=== PATIENT | male | born 1940 | race Caucasian/White ===

== ENCOUNTER 2018-05-28 10:00 | Inpatient (IN) | payer MEDICARE ==
[2018-05-28 10:57] LABS: Hemoglobin 12.6 g/dL (14.0-18.0)
[2018-05-28 11:18] LABS: Anion Gap 13 mmol/L (10-20); BUN (Urea Nitrogen) 19 mg/dL (8.4-25.7); Calc. Creatinine Clearance 0 mL/min (70-130); Calcium 8.6 mg/dL (7.8-10.44); Carbon Dioxide 26 mmol/L (23-31); Chloride 93 mmol/L (98-107); Estimated GFR-MDRD 53; Glucose 112 mg/dL (83-110); Potassium 3.9 mmol/L (3.5-5.1); Sodium 128 mmol/L (136-145)
--- NOTE | 2018-05-28 11:48 | RAD ---
CHEST 2 VIEWS: Date: 05/28/18 HISTORY: Preoperative exam. COMPARISON: None. FINDINGS: There is diffuse interstitial and alveolar opacification of the left hemithorax, worrisome for chroni c change versus infiltrate. Comparison with prior imaging would be beneficial. Normal cardiac silhoue tte. There is no significant pleural fluid or pneumothorax. Rightward curvature of the thoracic spine is noted. IMPRESSION: Diffuse opacification of the left hemithorax due to interstitial and alveolar opacities. Correlate fo r infiltrate versus chronic change. POS: [facility]
[2018-05-28 11:56] LABS: Mean Corpuscular HGB CONC 33.5 g/dL (32.0-36.0); Mean Corpuscular Hemoglobin 31.6 pg (27.0-31.0); Mean Corpuscular Volume 94.4 fL (78.0-98.0); Mean Platelet Volume 8.7 fL (7.4-10.4); Platelet Count 180 thou/uL (130-400); RBC Distribution Width 12.8 % (11.5-14.5); Red Blood Cell (RBC) Count 3.99 mill/uL (4.70-6.10); White Blood Cell (WBC) Count 12.3 thou/uL (4.8-10.8)
[2018-05-28] MEDS ORDERED: HYDROcodone/Acetaminophen 5/325 mg Tablet PO PRN (11:56)
[2018-05-28] MEDS ORDERED: Ondansetron ODT 4 MG TAB PO PRN (11:56)
[2018-05-28] MEDS ORDERED: Zolpidem Tartrate 5 MG TAB PO PRN (11:56)
[2018-05-28] MEDS ORDERED: Sodium Chloride 0.9% 100 ML ONE (12:08)
[2018-05-28] MEDS ORDERED: cefTRIAXone\\ROCEPHIN 1 GM VIAL ONE (12:08)
[2018-05-28] MEDS ORDERED: Acetaminophen 325 MG TAB ONE (12:09)
[2018-05-28 12:22] LABS: Band 25 % (5-11); Lymphocytes 5 % (21-51); MDiff Complete? YES; Monocytes 2 % (0-10); Neutrophil 68 % (42-75)
--- NOTE | 2018-05-28 12:25 | HP ---
DATE OF ADMISSION: 05/28/2018 PRIMARY CARE PROVIDER: Joseph Piper M.D. HISTORY OF PRESENT ILLNESS: The patient in [place] day stay for a melanoma resection, was noted to appear ill. Sound was called. The patient states he has had fevers, sweats and chills for 2 day s, a cough nonproductive, some shortness of breath, no chest pain. He relates no smoking for the pas t 30+ years. PAST MEDICAL HISTORY: Pertinent for hypertension, elevated cholesterol. CURRENT MEDICATIONS: The patient takes atorvastatin 10 mg a day, amlodipine 5 mg a day and aspirin 8 1 mg a day. ALLERGIES: He has no medical allergies. PAST SURGICAL HISTORY: He has had actinic skin lesions removed in the past. No other surgeries. FAMILY HISTORY: His father had late onset diabetes. No coronary artery disease. SOCIAL HISTORY: He is , full code status. next of kin at bedside. No tobacco in 30 yea rs. He drinks one glass of red wine at night. REVIEW OF SYSTEMS: General: No headaches, dizziness or fainting. Eyes: No double vision, blurred vision, flashing lights. Ear, Nose and Throat: No ear pain or drainage. No nasal bleeding. No tro uble swallowing. Cardiac: No chest pain, orthopnea or paroxysmal nocturnal dyspnea. Respiratory: No history of asthma, COPD. He does have some mild shortness of breath with present illness. Gastro intestinal: No nausea, vomiting, abdominal pain, diarrhea or constipation. Genitourinary: No hemat uria or dysuria. Musculoskeletal: No pain, swelling in his arms or legs. Neurologic: No strokes, seizures or focal weakness. 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 Skin: He has some lacerations on his face from a fall, healing. He has an approximatel y 3 mm, round, minimally raised red spot on his scalp that has been diagnosed as melanoma, resection was planned today until it was canceled for this illness. Heme/Lymph: No tender or swollen lymph no kim in the axilla, inguinal or cervical area. PHYSICAL EXAMINATION: GENERAL: He is an alert, appropriate gentleman, somewhat surprised that he is considered to be sick. VITAL SIGNS: His O2 sat was noted to be 85, he was noted to have a 103 fever, pulse is approximately 110, blood pressure 110/70. HEENT: Reveal pupils equal, round and reactive to light. Extraocular movements are intact. Sclerae white. Tympanic membranes are clear. Nose is clear. Oral mucous membranes are wet. Dental hygien e is good. NECK: Supple without jugular venous distention, adenopathy or thyromegaly. CHEST: He has coarse rales across his entire anterior left and right chest. The right side is clear . HEART: Regular rate and rhythm. First and second heart sounds are clear. There are no murmurs or g allops. ABDOMEN: Soft. Bowel sounds are normal. There is no hepatosplenomegaly, no mass, no rebound, no br uits. EXTREMITIES: Reveal no cyanosis, clubbing or edema. PULSES: Carotid, radial, femoral and dorsalis pedis pulses intact. SKIN: Warm and dry with no bruises or rash. He has a 3 mm pink round area on his vertex that has be en previously identified as a melanoma. He has some healing abrasions on his forehead, nose and face . HEME/LYMPH: Reveals no tender or swollen lymph nodes in the axilla, inguinal or cervical area. NEUROLOGICAL: Cranial nerves II-XII are intact. Deep tendon reflexes are symmetric. LABORATORY AND X-RAY FINDINGS: Chest x-ray reveals significant kyphoscoliosis with an infiltrate cov ering the majority of his left chest. The diaphragm surprisingly is clear, reviewed by me. EKG, reg ular sinus rhythm with frequent PACs and nonspecific T-wave abnormality, reviewed by me. Laboratory obtained so far reveals elevated white count at 12.3, hemoglobin 12.6, platelet count of 180,000. So dium is 128, potassium 3.9, chloride 93, creatinine is 1.31, BUN is 19, glucose is 112. ADMITTING DIAGNOSES: 1. Acute respiratory failure with hypoxemia. 2. Pneumonia, left-sided, probably left upper lung. 3. Hypertension. 4. Dyslipidemia. 5. Melanoma of scalp. 6. Hyponatremia. 7. Acute kidney failure. PLAN: 1. Blood cultures. 2. IV antibiotics with Rocephin and Zithromax. 3. IV fluids. 4. Continue selected home medicines. 5. Comprehensive metabolic profile today. Basic metabolic profile tomorrow.
[2018-05-28 13:29] LABS: Chloride 94 mmol/L (98-107); Potassium 3.4 mmol/L (3.5-5.1); Sodium 128 mmol/L (136-145)
[2018-05-28 13:30] LABS: Calcium 8.4 mg/dL (7.8-10.44); Globulin 2.8 g/dL (2.4-3.5); Glucose 162 mg/dL (83-110); Protein, Total 5.8 g/dL (5.8-8.1)
[2018-05-28 13:32] LABS: Anion Gap 12 mmol/L (10-20); Bilirubin, Total 1.1 mg/dL (0.2-1.2); Carbon Dioxide 25 mmol/L (23-31)
[2018-05-28 13:33] LABS: Alkaline Phosphatase 72 U/L (40-150); Calc. Creatinine Clearance 0 mL/min (70-130); Estimated GFR-MDRD 57
[2018-05-28 13:34] LABS: BUN (Urea Nitrogen) 19 mg/dL (8.4-25.7)
[2018-05-28 13:35] LABS: AST (SGOT) 228 U/L (5-34)
[2018-05-28 13:36] LABS: ALT (SGPT) 140 U/L (8-55)
[2018-05-28] MEDS: Azithromycin 500 MG in Sodium Chloride 0.9% 250 ML 250 ML IVPB SCH ×2 (15:00→16:52)
[2018-05-28] MEDS: cefTRIAXone\\ROCEPHIN 1 GM in Sodium Chloride 0.9% 100 ML IVPB SCH (15:02)
[2018-05-28] MEDS: Sodium Chloride 0.9% 1,000 ML IV SCH (15:03)
[2018-05-28 15:19] VITALS: BMI 24.1
[2018-05-29] MEDS: Acetaminophen 325 MG TAB PO PRN ×2 (01:07→16:36)
[2018-05-29 05:50] LABS: Anion Gap 14 mmol/L (10-20); BUN (Urea Nitrogen) 20 mg/dL (8.4-25.7); Calc. Creatinine Clearance 69 mL/min (70-130); Calcium 8.2 mg/dL (7.8-10.44); Carbon Dioxide 26 mmol/L (23-31); Chloride 97 mmol/L (98-107); Estimated GFR-MDRD 73; Glucose 129 mg/dL (83-110); Potassium 3.6 mmol/L (3.5-5.1); Sodium 133 mmol/L (136-145)
[2018-05-29] MEDS: Sodium Chloride 0.9% 1,000 ML IV SCH ×2 (06:35→16:31)
[2018-05-29] MEDS: Amlodipine 5 MG TAB PO SCH (08:33)
[2018-05-29] MEDS: Enoxaparin Sodium 40 MG/0.4 ML SYRINGE SC SCH (08:34)
[2018-05-29] MEDS: Atorvastatin Calcium 10 MG TAB PO SCH (08:34)
[2018-05-29] MEDS: Aspirin 81 mg Enteric Coated Tablet PO SCH (08:34)
--- NOTE | 2018-05-29 08:51 | PDOC.PN ---
- Subjective Encounter Start Date: 05/29/18 Encounter Start Time: 08:50 Subjective: feels better, still has cough - Objective Resuscitation Status: Resuscitation Status FULL:Full Resuscitation MAR Reviewed: Yes Vital Signs & Weight: Vital Signs (12 hours) Temp Pulse Resp BP BP Pulse Ox 05/29/18 08:33 78 118/72 05/29/18 07:24 97.5 F L 77 20 118/72 93 L 05/29/18 03:59 97.5 F L 68 18 101/55 L 96 05/29/18 02:15 97.5 F L 05/29/18 00:55 100.5 F H 76 18 142/73 H 92 L Weight Weight 168 lb 6.4 oz I&O: 05/28/18 05/29/18 05/30/18 06:59 06:59 06:59 Intake Total 890 Output Total 350 Balance 540 Result Diagrams: 05/28/18 10:48 05/29/18 04:40 Additional Labs: Accuchecks 05/28/18 10:55 POC Glucose 108 Phys Exam - Physical Examination Neck: no JVD rales A/P left chest, clear on R Cardiovascular: RRR, no significant murmur Gastrointestinal: soft, non-tender, positive bowel sounds Musculoskeletal: no edema Dx/Plan (1) Acute respiratory failure with hypoxia Code(s): J96.01 - ACUTE RESPIRATORY FAILURE WITH HYPOXIA Status: Acute (2) PNA (pneumonia) Code(s): J18.9 - PNEUMONIA, UNSPECIFIED ORGANISM Status: Acute Qualifiers: Pneumonia type: due to Pneumococcus Laterality: left Lung location: upper lobe of lung Qualified Code(s): J13 - Pneumonia due to Streptococcus pneumoniae (3) HTN (hypertension) Code(s): I10 - ESSENTIAL (PRIMARY) HYPERTENSION Status: Chronic Qualifiers: Hypertension type: essential hypertension Qualified Code(s): I10 - Essential (primary) hypertension (4) Dyslipidemia Code(s): E78.5 - HYPERLIPIDEMIA, UNSPECIFIED Status: Chronic - Plan cont iv antibx, LFTs elevated, probable pneumococcus -: cont to insist on pulmonary consult -: await C&S results -: cont home meds * .
--- NOTE | 2018-05-29 11:58 | PQF ---
CLINICAL DOCUMENTATION IMPROVEMENT CLARIFICATION FORM: ICD-10 Updated PLEASE DO AN ADDENDUM TO THE PROGRESS NOTE WITH ANY DOCUMENTATION UPDATES OR ADDITIONS AND CARRY THROUGH TO DC SUMMARY. THANK YOU. DATE: 05/29/18 ATTN: DR. BERNAL Please exercise your independent, professional judgment in responding to the clarification form. Clinical indicators are provided on the bottom of this form for your review Please check appropriate box(es): [ x ] Sepsis due to: (Pna, UTI, gangrenous gall bladder, etc.) pnxa___ Due to: [ ] Device (please specify) [ ] Implant [ ] Graft [ ] Infusion [ ] SIRS due to non-infectious process (please specify etiology) [ ] with organ dysfunction [ ] without organ dysfunction [ ] Severe sepsis with acute organ dysfunction of: (Examples: respiratory failure, encephalopathy, acute kidney failure, other) [ ] Septic Shock [ ] Localized infection without sepsis [ ] Other diagnosis [ ] Unable to determine In addition, please specify: Present on Admission (POA): [ x] Yes [ ] No [ ] Unable to determine For continuity of documentation, please document condition throughout progress notes and discharge summary. Thank You. CLINICAL INDICATORS - SIGNS / SYMPTOMS / LABS H&P 05/28: "THE PATIENT STATES HE HAS HAD FEVERS, SWEATS AND CHILLS FOR 2 DAYS... " WBC 05/28: 12.3 BANDS 05/28: 25 GLUCOSE 05/28: 162 RR 05/28: 28 RISKS: PNEUMONIA (H&P 05/28) ACUTE RESPIRATORY FAILURE (H&P 05/28) TREATMENT: BLOOD CULTURES 05/28 SERIAL LABS IV ROCEPHIN (05/28-PRESENT) IV ZITHROMAX (05/28-PRESENT) IV FLUIDS (05/28-PRESENT) (This form is maintained as a part of the permanent medical record) 2014 [employer] All Rights Reserved CAREN [email or web address] Office: [phone] [facility] + HOSPITALSAmanda
[2018-05-29] MEDS: cefTRIAXone\\ROCEPHIN 1 GM in Sodium Chloride 0.9% 100 ML IVPB SCH (12:35)
[2018-05-29] MEDS ORDERED: Potassium Chloride 20 MEQ TAB PO SCH (13:00)
[2018-05-29] MEDS: Azithromycin 500 MG in Sodium Chloride 0.9% 250 ML 250 ML IVPB SCH (13:10)
[2018-05-29 14:39] LABS: Legionella Urinary Ag Negative (Negative); Strep pneumo Urine Ag NEGATIVE (NEGATIVE)
--- NOTE | 2018-05-29 16:12 | CON ---
DATE OF CONSULTATION: 05/29/2018 SERVICE: Pulmonary Medicine. REASON FOR CONSULTATION: Pneumonia. HISTORY OF PRESENT ILLNESS: The patient is a 77-year-old white male with past medical history significant for melanoma. He came in for an elective procedure , but 3 days prior to the procedure, he had increasing shortness of breath, productive sputum and fevers. He was having night sweats. This happened for about 3 days prior to presentation. Ultimately, he still presented for his elective outpatient procedure, but was deemed too sick to undergo his excision of the melanoma. A chest x-ray was performed demonstrating an infiltrate. He was treated with appropriate coverage. Overnight, he actually feels significantly improved. He denies any current fevers, chills, nausea or vomiting. There are no significant overnight events. He is not having any abdominal discomfort, diarrhea, arthralgia, hot, red or swollen joints or rashes. PAST MEDICAL HISTORY: 1. Hypertension. 2. Dyslipidemia. 3. Melanoma. PAST SURGICAL HISTORY: Actinic keratoses excision. ALLERGIES: No known drug allergies. MEDICATIONS: List of his inpatient medications were reviewed. No specific updates were made at this time. FAMILY HISTORY: Noncontributory. SOCIAL HISTORY: He has a [id number] history of smoking, but quit over 30 years ago. He is . He drinks a glass of red wine most nights. He denies any illicit drugs. He has no exposure to chemicals, dust, asbestos or tuberculosis. REVIEW OF SYSTEMS: General, head, ears, eyes, nose, throat, cardiovascular, respiratory, GI, , musculoskeletal, neurologic and skin is negative except as mentioned in the HPI. PHYSICAL EXAMINATION: VITAL SIGNS: Afebrile currently with a T-max overnight of 100.5. Pulse 81, blood pressure 119/72, respirations 18, saturation 95% on 2 liters nasal cannula. GENERAL: The patient is awake and alert, in no apparent distress. LUNGS: Decent air entry. There are crackles on the left. Clear to auscultation on the right. No prolonged expiratory phase or wheezing is appreciated. HEART: Normal rate. Regular. ABDOMEN: Soft, nontender, nondistended. Bowel sounds are positive. MUSCULOSKELETAL: No cyanosis or clubbing. There is no pitting in the bilateral lower extremities. NEUROLOGIC: Grossly nonfocal. LABORATORY DATA: WBC 12.3, hemoglobin 12.6, platelets 180,000. Band count is 25%. Sodium is improving to 133, potassium 3.6, creatinine down trending to 1.0. Basic metabolic profile is otherwise unremarkable. AST and ALT are minimally elevated. Blood cultures x2 are unremarkable. IMAGING: Chest x-ray demonstrates an infiltrate with reticular and consolidating type pattern in the left upper lobe. Air bronchograms are identified. ASSESSMENT: 1. Acute hypoxic respiratory failure. 2. Community-acquired pneumonia. 3. Elevated liver function studies, AST and ALT. 4. Severe sepsis. DISCUSSION AND PLAN: Agree with current antibiotics. We will get urine for Strep and Legionella antigens. I will repeat liver functions studies in the morning. He will ultimately need a repeat CXR in 6 weeks in the outpatient setting to verify the infiltrate resolves. If it does not, additional diagnostic procedures are required. 70 minutes have been devoted to this patient in various activities. I personally reviewed all imaging studies and laboratory data noted within this document. For fifty percent of this time, I was interacting with the patient at the bedside or coordinating care with the care team. For the remainder of the time I was immediately available to the patient in the hospital unit. EDILMA
[2018-05-30] MEDS: Acetaminophen 325 MG TAB PO PRN (05:05)
[2018-05-30] MEDS: Sodium Chloride 0.9% 1,000 ML IV SCH ×2 (05:25→12:48)
[2018-05-30 08:09] LABS: Band 32 % (5-11); Eosinophils 1 % (0-10); Hemoglobin 12.4 g/dL (14.0-18.0); Lymphocytes 6 % (21-51); MDiff Complete? YES; Mean Corpuscular HGB CONC 32.6 g/dL (32.0-36.0); Mean Corpuscular Hemoglobin 30.9 pg (27.0-31.0); Mean Platelet Volume 8.9 fL (7.4-10.4); Metamyelocyte 1 % (0-0); Monocytes 1 % (0-10); Neutrophil 59 % (42-75); Platelet Count 219 thou/uL (130-400); RBC Distribution Width 13.2 % (11.5-14.5); Vacuoles SLIGHT; White Blood Cell (WBC) Count 14.4 thou/uL (4.8-10.8)
[2018-05-30] MEDS: Amlodipine 5 MG TAB PO SCH (08:09)
[2018-05-30] MEDS: Atorvastatin Calcium 10 MG TAB PO SCH (08:09)
[2018-05-30] MEDS: Aspirin 81 mg Enteric Coated Tablet PO SCH (08:09)
[2018-05-30] MEDS: Enoxaparin Sodium 40 MG/0.4 ML SYRINGE SC SCH (08:10)
[2018-05-30 08:15] LABS: Anion Gap 13 mmol/L (10-20); BUN (Urea Nitrogen) 18 mg/dL (8.4-25.7); Calc. Creatinine Clearance 97 mL/min (70-130); Calcium 8.3 mg/dL (7.8-10.44); Carbon Dioxide 23 mmol/L (23-31); Chloride 97 mmol/L (98-107); Estimated GFR-MDRD Greater than 90; Glucose 104 mg/dL (83-110); Phosphorus 2.1 mg/dL (2.3-4.7); Potassium 3.7 mmol/L (3.5-5.1); Sodium 129 mmol/L (136-145)
--- NOTE | 2018-05-30 11:19 | PDOC.PN ---
- Subjective Encounter Start Date: 05/30/18 Encounter Start Time: 11:17 Subjective: feels a little bettter and stronger. -: rattling in his chest but not coughing up anything - Objective Resuscitation Status: Resuscitation Status FULL:Full Resuscitation MAR Reviewed: Yes Vital Signs & Weight: Vital Signs (12 hours) Temp Pulse Resp BP BP BP Pulse Ox 05/30/18 11:00 97.6 F 74 18 117/70 97 05/30/18 08:10 95 05/30/18 08:09 75 118/71 95 05/30/18 07:26 97.7 F 83 18 118/71 91 L 05/30/18 04:00 100.7 F H 79 18 152/79 H 95 05/30/18 00:30 99.6 F 90 18 150/77 H 94 L Weight Weight 168 lb 6.4 oz I&O: 05/29/18 05/30/18 05/31/18 06:59 06:59 06:59 Intake Total 890 1386 Output Total 350 400 Balance 540 986 Result Diagrams: 05/30/18 07:33 05/30/18 07:33 Additional Labs: Microbiology 05/28/18 12:20 Venous blood - Right Hand Blood Culture - Preliminary Specimen has been received and culture in progress. No Growth to date. 05/28/18 12:20 Venous blood - Left Hand Blood Culture - Preliminary Specimen has been received and culture in progress. No Growth to date. Laboratory Tests 05/29/18 14:20 Ur L.pneumophila Ag Negative Ur Strep pneumoniae Ag NEGATIVE Phys Exam - Physical Examination Constitutional: NAD pale HEENT: PERRLA, moist MMs, sclera anicteric, oral pharynx no lesions, 2+ tonsils melanomatic lesion on tip of nose.bruise on forehead Neck: no nodes, no JVD, supple, full ROM Respiratory: no wheezing, no rales, no rhonchi, clear to auscultation bilateral reduced left side Cardiovascular: RRR, no significant murmur, no rub Gastrointestinal: soft, non-tender, no distention, positive bowel sounds Musculoskeletal: no edema, pulses present Neurological: non-focal, normal sensation, moves all 4 limbs Psychiatric: normal affect, A&O x 3 Skin: no rash Dx/Plan (1) Acute respiratory failure with hypoxia Code(s): J96.01 - ACUTE RESPIRATORY FAILURE WITH HYPOXIA Status: Acute (2) Sepsis Code(s): A41.9 - SEPSIS, UNSPECIFIED ORGANISM Status: Acute (3) PNA (pneumonia) Code(s): J18.9 - PNEUMONIA, UNSPECIFIED ORGANISM Status: Acute Qualifiers: Pneumonia type: due to Pneumococcus Laterality: left Lung location: upper lobe of lung Qualified Code(s): J13 - Pneumonia due to Streptococcus pneumoniae (4) Hyponatremia Code(s): E87.1 - HYPO-OSMOLALITY AND HYPONATREMIA Status: Acute Comment: 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.Monitor (5) Melanoma Code(s): C43.9 - MALIGNANT MELANOMA OF SKIN, UNSPECIFIED Status: Acute Qualifiers: Melanoma location: nose Qualified Code(s): C43.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 Comment: Scheduled for resection as an OP (6) LFT elevation Code(s): R94.5 - ABNORMAL RESULTS OF LIVER FUNCTION STUDIES Status: Acute (7) Dyslipidemia Code(s): E78.5 - HYPERLIPIDEMIA, UNSPECIFIED Status: Chronic (8) HTN (hypertension) Code(s): I10 - ESSENTIAL (PRIMARY) HYPERTENSION Status: Chronic Qualifiers: Hypertension type: essential hypertension Qualified Code(s): I10 - Essential (primary) hypertension (9) Fall Code(s): W19.XXXA - UNSPECIFIED FALL, INITIAL ENCOUNTER Status: Acute - Plan plan discussed w/ family, continue antibiotics, PT/OT, respiratory therapy, incentive spirometry, DVT proph w/SCDs cont empiric ABx. -: Pt w 30 PY smoking history-will need CT chest OP in 6 weeks -: home meds as below. -: OP PCCM f/u -: am labs.wean off o2 as tolerated * .recheck LFT in am * monitor sodium. * PT. * nebs,O2 prn Review of Systems - Review of Systems Constitutional: weakness, malaise. negative: fever, chills, sweats, other ENT: negative: Ear Pain, Ear Discharge, Nose Pain, Nose Discharge, Nose Congestion, Mouth Pain, Mouth Swelling, Throat Pain, Throat Swelling, Other Respiratory: SOB with Excertion. negative: Cough, Dry, Shortness of Breath, Hemoptysis, Pleuritic Pain, Sputum, Wheezing Cardiovascular: negative: chest pain, palpitations, orthopnea, paroxysmal nocturnal dyspnea, edema, light headedness, other Gastrointestinal: negative: Nausea, Vomiting, Abdominal Pain, Diarrhea, Constipation, Melena, Hematochezia, Other Genitourinary: negative: Dysuria, Frequency, Incontinence, Hematuria, Retention , Other Musculoskeletal: negative: Neck Pain, Shoulder Pain, Arm Pain, Back Pain, Hand Pain, Leg Pain, Foot Pain, Other Skin: negative: Rash, Lesions, Fernando, Bruising, Other Neurological: negative: Weakness, Numbness, Incoordination, Change in Speech, Confusion, Seizures, Other - Medications/Allergies Allergies/Adverse Reactions: Allergies Allergy/AdvReac Type Severity Reaction Status Date / Time No Known Allergies Allergy Unverified 05/27/18 15:23 Medications: Current Medications Acetaminophen (Tylenol) 650 mg PO Q4H PRN PRN Reason: Headache/Fever or Pain Last Admin: 05/30/18 05:05 Dose: 650 mg Hydrocodone Bitart/Acetaminophen ([place] 5/325) 1 tab PO Q4H PRN PRN Reason: Moderate Pain (4-6) Amlodipine Besylate (Norvasc) 5 mg PO DAILY [facility] Last Admin: 05/30/18 08:09 Dose: 5 mg Aspirin (Ecotrin) 81 mg PO DAILY [facility] Last Admin: 05/30/18 08:09 Dose: 81 mg Atorvastatin Calcium (Lipitor) 10 mg PO DAILY [facility] Last Admin: 05/30/18 08:09 Dose: 10 mg Enoxaparin Sodium (Lovenox) 40 mg SC 0900 [facility] Last Admin: 05/30/18 08:10 Dose: 40 mg Azithromycin 500 mg/ Sodium (Chloride) 250 mls @ 250 mls/hr IVPB 1300 [facility] Last Admin: 05/29/18 13:10 Dose: 250 mls Ceftriaxone Sodium 1 gm/ (Sodium Chloride) 100 mls @ 200 mls/hr IVPB Q24HR [facility] Last Admin: 05/29/18 12:35 Dose: 100 mls Sodium Chloride (Normal Saline 0.9%) 1,000 mls @ 75 mls/hr IV .[id number] [facility] Last Admin: 05/30/18 05:25 Dose: Not Given Ondansetron HCl (Zofran Odt) 4 mg PO Q6H PRN PRN Reason: Nausea/Vomiting Sodium Chloride (Flush - Normal Saline) 10 ml IVF Q12HR [facility] Last Admin: 05/30/18 08:10 Dose: Not Given Sodium Chloride (Flush - Normal Saline) 10 ml IVF PRN PRN PRN Reason: Saline Flush Zolpidem Tartrate (Ambien) 5 mg PO HSPRN PRN PRN Reason: Insomnia
[2018-05-30] MEDS ORDERED: guaiFENesin ER 600 MG TAB PO SCH ×2 (11:30→12:30)
[2018-05-30] MEDS: cefTRIAXone\\ROCEPHIN 1 GM in Sodium Chloride 0.9% 100 ML IVPB SCH (12:25)
[2018-05-30] MEDS: Azithromycin 500 MG in Sodium Chloride 0.9% 250 ML 250 ML IVPB SCH (13:40)
--- NOTE | 2018-05-30 14:58 | PRG ---
DATE OF SERVICE: 05/30/2018 SERVICE: Pulmonary Medicine. INTERVAL HISTORY: The patient actually feels much improved today. He is still coughing, but not tegan nging anything up. His strength has improved fairly dramatically. Today, he was able to get up and walk up and down the hallway with some assistance. This is actually much improved compared to where we were 2 days ago. He denies any fevers overnight. Otherwise, he is very happy with the progress t hat has been made so far. PHYSICAL EXAMINATION: VITAL SIGNS: Afebrile, pulse 74, blood pressure 124/73, respirations 18, saturation 97% on 2 liters nasal cannula. GENERAL: The patient is awake and alert, in no apparent distress. LUNGS: Decent air entry. There is no prolonged expiratory phase or wheezing present. HEART: Normal rate, regular. ABDOMEN: Soft, nontender, nondistended. Bowel sounds are positive. MUSCULOSKELETAL: No cyanosis or clubbing. There is no pitting in the bilateral lower extremities. GENITOURINARY: No Dent. NEUROLOGIC: Grossly nonfocal. LABORATORY DATA: WBC 14.4 and up trending, hemoglobin 12.4, platelets 219,000. Band counts are actu ally up trending to 32% at this time. Sodium down trending to 129. Basic metabolic profile is other roger unremarkable. Phosphorus 2.1. Magnesium falls within the normal limits. Strep and Legionella urine antigens are unremarkable. Blood cultures x2 are negative. ASSESSMENT: 1. Acute hypoxic respiratory failure, improving. 2. Community-acquired pneumonia. 3. Elevated AST and ALT. 4. Severe sepsis, improving. 5. Hypophosphatemia. DISCUSSION AND PLAN: I will replace the phosphorus. We will check a CK, TSH and B12 with tomorrow [facility] as well as repeat liver function studies. If his strength improves day by day, he may be a candidate for transition home on Friday or Friday. That being said, we will need to navid y it by ear and his strength needs to improve further. If it does not, Neurology consultation for th e weakness should be considered (3 weeks ago, he was more than comfortable with walking an entire 18 holes of golf).
[2018-05-30] MEDS ORDERED: Sodium Phosphate 15 MMOL in Sodium Chloride 0.9% 250 ML 250 ML IVPB ONE (15:00)
[2018-05-30] MEDS: guaiFENesin ER 600 MG TAB PO SCH (20:46)
[2018-05-31 04:30] LABS: ALT (SGPT) 148 U/L (8-55); AST (SGOT) 238 U/L (5-34); Albumin 2.5 g/dL (3.4-4.8); Alkaline Phosphatase 112 U/L (40-150); Anion Gap 14 mmol/L (10-20); BUN (Urea Nitrogen) 15 mg/dL (8.4-25.7); Bilirubin, Total 0.9 mg/dL (0.2-1.2); CK (CPK) 530 U/L (30-200); Calc. Creatinine Clearance 103 mL/min (70-130); Calcium 7.9 mg/dL (7.8-10.44); Carbon Dioxide 25 mmol/L (23-31); Chloride 98 mmol/L (98-107); Estimated GFR-MDRD Greater than 90; Globulin 2.5 g/dL (2.4-3.5); Glucose 98 mg/dL (83-110); Phosphorus 2.7 mg/dL (2.3-4.7); Potassium 3.5 mmol/L (3.5-5.1); Sodium 133 mmol/L (136-145)
[2018-05-31 04:51] LABS: Band 19 % (5-11); Eosinophils 1 % (0-10); Hemoglobin 10.9 g/dL (14.0-18.0); Lymphocytes 7 % (21-51); MDiff Complete? YES; Mean Corpuscular Hemoglobin 32.5 pg (27.0-31.0); Mean Corpuscular Volume 95.5 fL (78.0-98.0); Mean Platelet Volume 8.8 fL (7.4-10.4); Monocytes 2 % (0-10); Neutrophil 71 % (42-75); Platelet Count 241 thou/uL (130-400); RBC Distribution Width 13.6 % (11.5-14.5); Red Blood Cell (RBC) Count 3.37 mill/uL (4.70-6.10); White Blood Cell (WBC) Count 11.5 thou/uL (4.8-10.8)
[2018-05-31 05:45] LABS: Folate (Folic Acid) 5.9 ng/mL (7.0-31.4)
[2018-05-31] MEDS: Enoxaparin Sodium 40 MG/0.4 ML SYRINGE SC SCH (09:00)
[2018-05-31] MEDS: Amlodipine 5 MG TAB PO SCH (09:02)
[2018-05-31] MEDS: Aspirin 81 mg Enteric Coated Tablet PO SCH (09:02)
[2018-05-31] MEDS: guaiFENesin ER 600 MG TAB PO SCH ×2 (09:02→20:15)
[2018-05-31] MEDS: Atorvastatin Calcium 10 MG TAB PO SCH (09:03)
--- NOTE | 2018-05-31 09:41 | RAD ---
2 VIEWS CHEST: Date: 05/31/18 COMPARISON: 05/28/18. HISTORY: Infiltrate follow-up. FINDINGS: Stable scoliotic curvature of the spine. Stable opacification of the left lung parenchyma. Small left -sided effusion has developed. No pneumothorax. IMPRESSION: 1. Stable left parenchymal opacities. 2. Interval development of left-sided pleural effusion. POS: [facility]
[2018-05-31] MEDS: cefTRIAXone\\ROCEPHIN 1 GM in Sodium Chloride 0.9% 100 ML IVPB SCH (11:25)
--- NOTE | 2018-05-31 12:46 | PDOC.PN ---
- Subjective Encounter Start Date: 05/31/18 Encounter Start Time: 12:44 Subjective: feels a little better today.walked w PT - Objective Resuscitation Status: Resuscitation Status FULL:Full Resuscitation MAR Reviewed: Yes Vital Signs & Weight: Vital Signs (12 hours) Temp Pulse Resp BP BP Pulse Ox 05/31/18 09:02 81 138/76 05/31/18 08:00 95 05/31/18 07:50 98.1 F 81 18 138/76 95 Weight Weight 168 lb 6.4 oz I&O: 05/30/18 05/31/18 06/01/18 06:59 06:59 06:59 Intake Total 1386 1065 240 Output Total 400 600 Balance 986 465 240 Result Diagrams: 05/31/18 03:26 05/31/18 03:26 Additional Labs: Microbiology 05/28/18 12:20 Venous blood - Right Hand Blood Culture - Preliminary NO GROWTH AT 48 HOURS 05/28/18 12:20 Venous blood - Left Hand Blood Culture - Preliminary NO GROWTH AT 48 HOURS Laboratory Tests 02/06/18 05/28/18 05/31/18 07:36 13:08 03:26 AST 17 228 H 238 H ALT 17 140 H 148 H Alkaline Phosphatase 72 112 Creatine Kinase 530 H Serum Total Protein 5.0 L Vitamin B12 Folate TSH 3rd Generation 05/31/18 05/31/18 03:26 03:26 AST ALT Alkaline Phosphatase Creatine Kinase Serum Total Protein Vitamin B12 832 Folate 5.90 L TSH 3rd Generation 1.8326 Phys Exam - Physical Examination Constitutional: NAD HEENT: PERRLA, moist MMs, sclera anicteric, oral pharynx no lesions Neck: no nodes, no JVD, supple, full ROM Respiratory: no wheezing, no rales, no rhonchi, clear to auscultation bilateral reduced left side but improved since yesterday Cardiovascular: RRR, no significant murmur Gastrointestinal: soft, non-tender, no distention, positive bowel sounds Musculoskeletal: no edema, pulses present Neurological: non-focal, normal sensation, moves all 4 limbs Psychiatric: normal affect, A&O x 3 Skin: no rash Dx/Plan (1) Acute respiratory failure with hypoxia Code(s): J96.01 - ACUTE RESPIRATORY FAILURE WITH HYPOXIA Status: Acute Comment: Wean off O2 as tolerated (2) Sepsis Code(s): A41.9 - SEPSIS, UNSPECIFIED ORGANISM Status: Acute (3) PNA (pneumonia) Code(s): J18.9 - PNEUMONIA, UNSPECIFIED ORGANISM Status: Acute Qualifiers: Pneumonia type: due to Pneumococcus Laterality: left Lung location: upper lobe of lung Qualified Code(s): J13 - Pneumonia due to Streptococcus pneumoniae (4) Hyponatremia Code(s): E87.1 - HYPO-OSMOLALITY AND HYPONATREMIA Status: Acute Comment: 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.Monitor (5) Melanoma Code(s): C43.9 - MALIGNANT MELANOMA OF SKIN, UNSPECIFIED Status: Acute Qualifiers: Melanoma location: nose Qualified Code(s): C43.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 Comment: Scheduled for resection as an OP (6) LFT elevation Code(s): R94.5 - ABNORMAL RESULTS OF LIVER FUNCTION STUDIES Status: Acute (7) Dyslipidemia Code(s): E78.5 - HYPERLIPIDEMIA, UNSPECIFIED Status: Chronic (8) HTN (hypertension) Code(s): I10 - ESSENTIAL (PRIMARY) HYPERTENSION Status: Chronic Qualifiers: Hypertension type: essential hypertension Qualified Code(s): I10 - Essential (primary) hypertension (9) Fall Code(s): W19.XXXA - UNSPECIFIED FALL, INITIAL ENCOUNTER Status: Acute - Plan plan discussed w/ family, continue antibiotics, PT/OT, respiratory therapy, incentive spirometry, out of bed/ambulate, DVT proph w/SCDs Cont empiric ABx. OT/PT. -: LFt still elevated. ? organic liver disease/GB disease/stones -: will get Liver US. -: will need OP f/u w Chest CT in next 4-6 weeks and OP PCCM f/u -: wean off o2 as tolerated.clinically better * . Review of Systems - Review of Systems Constitutional: weakness, malaise. negative: fever, chills, sweats, other Respiratory: Cough, SOB with Excertion. negative: Dry, Shortness of Breath, Hemoptysis, Pleuritic Pain, Sputum, Wheezing Cardiovascular: negative: chest pain, palpitations, orthopnea, paroxysmal nocturnal dyspnea, edema, light headedness, other Gastrointestinal: negative: Nausea, Vomiting, Abdominal Pain, Diarrhea, Constipation, Melena, Hematochezia, Other Genitourinary: negative: Dysuria, Frequency, Incontinence, Hematuria, Retention , Other Musculoskeletal: negative: Neck Pain, Shoulder Pain, Arm Pain, Back Pain, Hand Pain, Leg Pain, Foot Pain, Other Skin: negative: Rash, Lesions, Fernando, Bruising, Other Neurological: negative: Weakness, Numbness, Incoordination, Change in Speech, Confusion, Seizures, Other - Medications/Allergies Allergies/Adverse Reactions: Allergies Allergy/AdvReac Type Severity Reaction Status Date / Time No Known Allergies Allergy Unverified 05/27/18 15:23 Medications: Current Medications Acetaminophen (Tylenol) 650 mg PO Q4H PRN PRN Reason: Headache/Fever or Pain Last Admin: 05/30/18 05:05 Dose: 650 mg Hydrocodone Bitart/Acetaminophen ([place] 5/325) 1 tab PO Q4H PRN PRN Reason: Moderate Pain (4-6) Albuterol/Ipratropium (Duoneb) 3 ml NEB [id number] PRN PRN Reason: SOB &/or Wheezing Amlodipine Besylate (Norvasc) 5 mg PO DAILY [facility] Last Admin: 05/31/18 09:02 Dose: 5 mg Aspirin (Ecotrin) 81 mg PO DAILY [facility] Last Admin: 05/31/18 09:02 Dose: 81 mg Atorvastatin Calcium (Lipitor) 10 mg PO DAILY [facility] Last Admin: 05/31/18 09:03 Dose: 10 mg Enoxaparin Sodium (Lovenox) 40 mg SC 0900 [facility] Last Admin: 05/31/18 09:00 Dose: 40 mg Folic Acid (Folvite) 1 mg PO DAILY [facility] Guaifenesin (Mucinex) 600 mg PO Q12HR [facility] Last Admin: 05/31/18 09:02 Dose: 600 mg Azithromycin 500 mg/ Sodium (Chloride) 250 mls @ 250 mls/hr IVPB 1300 [facility] Last Admin: 05/30/18 13:40 Dose: 250 mls Ceftriaxone Sodium 1 gm/ (Sodium Chloride) 100 mls @ 200 mls/hr IVPB Q24HR [facility] Last Admin: 05/31/18 11:25 Dose: 100 mls Ondansetron HCl (Zofran Odt) 4 mg PO Q6H PRN PRN Reason: Nausea/Vomiting Sodium Chloride (Flush - Normal Saline) 10 ml IVF Q12HR [facility] Last Admin: 05/31/18 09:03 Dose: 10 ml Sodium Chloride (Flush - Normal Saline) 10 ml IVF PRN PRN PRN Reason: Saline Flush Zolpidem Tartrate (Ambien) 5 mg PO HSPRN PRN PRN Reason: Insomnia
[2018-05-31] MEDS: Azithromycin 500 MG in Sodium Chloride 0.9% 250 ML 250 ML IVPB SCH (13:06)
--- NOTE | 2018-05-31 15:06 | ULT ---
RIGHT UPPER QUADRANT ULTRASOUND: DATE: 05/31/18. PROVIDED CLINICAL HISTORY: Elevated LFTs. FINDINGS: The visualized portions of the pancreas appear normal. The liver demonstrates no evidence for mass o r intrahepatic biliary ductal dilatation. The common duct is not dilated. Gallbladder demonstrates no stones, wall thickening, or pericholecystic fluid. Right kidney demonstrates no evidence for hydr onephrosis or mass. IMPRESSION: Unremarkable right upper quadrant ultrasound. POS: [facility]
[2018-05-31] MEDS ORDERED: Potassium Chloride 20 MEQ TAB PO SCH (15:15)
[2018-05-31] MEDS ORDERED: PRE FILLED SC SCH (15:30)
[2018-05-31] MEDS ORDERED: FOLIC ACID SC SCH (15:30)
--- NOTE | 2018-05-31 16:05 | PRG ---
DATE OF SERVICE: 05/31/2018 SERVICE: Pulmonary Medicine. INTERVAL HISTORY: The patient is doing great from a respiratory standpoint. His strength is improving day by day. Her shortness of breath is also getting a little bit better. That being said, the LFT studies remain slightly elevated. He denies any current fevers or chills overnight. Otherwise, he feels like he is making some slow progress. He is not anywhere near the point of baseline yet from a strength standpoint. PHYSICAL EXAMINATION: VITAL SIGNS: Afebrile, pulse 81, blood pressure 138/76, respirations 18, saturation 95% on 2 liters nasal cannula. GENERAL: The patient is awake, alert, no apparent distress. LUNGS: Decent air entry. There is no prolonged expiratory phase. Crackles are present on the left. No crackles on the right. HEART: Normal rate, regular. ABDOMEN: Soft, nontender, nondistended. Bowel sounds are positive. MUSCULOSKELETAL: No cyanosis or clubbing. There is no pitting in the bilateral lower extremities. NEUROLOGIC: Grossly nonfocal. LABORATORY DATA: WBC 11.5, hemoglobin 10.9, platelets 241,000. Band count is dropping. AST and ALT remain a little elevated. CK 530, liver function studies are essentially unremarkable otherwise. Total bilirubin level is low. Basic metabolic profile is unremarkable and the sodium is up trending. TSH falls within normal limits. Folate is low and B12 is within the normal limits. Blood cultures x2 remain negative. IMAGING: Abdominal ultrasound demonstrates no evidence of any acute intra- abdominal process. Chest x-ray demonstrates persistent infiltrate in the left basilar region. I really truthfully do not see a large pleural effusion even doing a bedside ultrasound on. The upper lobe infiltrate is actually improved somewhat. ASSESSMENT: 1. Acute hypoxic respiratory failure, improving. 2. Community-acquired pneumonia. 3. Elevated AST and ALT. 4. Severe sepsis, improving. 5. Hypophosphatemia, resolved. DISCUSSION AND PLAN: We will replace the folate. We will repeat a CBC and a basic metabolic profile with tomorrow morning's laboratories. The CK is elevated. We will check an aldolase as well as repeat CK level tomorrow morning to verify that this inflammation is resolving. LFTs will also be repeated. If by tomorrow morning, the AST and ALT are trending in a good direction, a GI consultation will be considered. EDILMA
[2018-05-31] MEDS ORDERED: Melatonin 3 MG TAB PO PRN (18:42)
[2018-06-01 05:09] LABS: #Eosinphils 0.2 thou/uL (0.0-0.7); #Lymphocytes 1.1 thou/uL (1.20-3.40); #Monocytes 0.4 thou/uL (0.11-0.59); %Basophils 0.1 % (0.0-1.0); %Eosinophils 1.6 % (0.0-10.0); %Lymphocytes 11.6 % (21.0-51.0); %Monocytes 3.8 % (0.0-10.0); %Neutrophils 82.8 % (42.0-75.0); Hemoglobin 10.8 g/dL (14.0-18.0); Mean Corpuscular HGB CONC 33.4 g/dL (32.0-36.0); Mean Corpuscular Volume 95.6 fL (78.0-98.0); Mean Platelet Volume 8.2 fL (7.4-10.4); Platelet Count 277 thou/uL (130-400); RBC Distribution Width 13.3 % (11.5-14.5); Red Blood Cell (RBC) Count 3.37 mill/uL (4.70-6.10); White Blood Cell (WBC) Count 9.7 thou/uL (4.8-10.8)
[2018-06-01 05:51] LABS: ALT (SGPT) 188 U/L (8-55); AST (SGOT) 315 U/L (5-34); Albumin 2.5 g/dL (3.4-4.8); Alkaline Phosphatase 120 U/L (40-150); Bilirubin, Direct 0.5 mg/dL (0.1-0.3); Protein, Total 5.1 g/dL (5.8-8.1)
[2018-06-01 05:57] LABS: Anion Gap 12 mmol/L (10-20); BUN (Urea Nitrogen) 7 mg/dL (8.4-25.7); CK (CPK) 377 U/L (30-200); Calc. Creatinine Clearance 101 mL/min (70-130); Calcium 8.1 mg/dL (7.8-10.44); Carbon Dioxide 27 mmol/L (23-31); Chloride 100 mmol/L (98-107); Estimated GFR-MDRD Greater than 90; Glucose 94 mg/dL (83-110); Phosphorus 2.5 mg/dL (2.3-4.7); Potassium 3.4 mmol/L (3.5-5.1); Sodium 136 mmol/L (136-145)
[2018-06-01] MEDS ORDERED: predniSONE 20 MG TAB PO SCH (09:30)
[2018-06-01 09:47] LABS: Iron 37 ug/dL (65-175); Iron Binding Capacity, Total 129 mcg/dL (261-462)
[2018-06-01] MEDS: Folic Acid 1 MG TAB PO SCH (09:52)
[2018-06-01] MEDS: Aspirin 81 mg Enteric Coated Tablet PO SCH (09:52)
[2018-06-01] MEDS: Amlodipine 5 MG TAB PO SCH (09:52)
[2018-06-01] MEDS: Atorvastatin Calcium 10 MG TAB PO SCH (09:52)
[2018-06-01] MEDS: guaiFENesin ER 600 MG TAB PO SCH ×2 (09:53→20:03)
[2018-06-01] MEDS: Enoxaparin Sodium 40 MG/0.4 ML SYRINGE SC SCH (09:53)
--- NOTE | 2018-06-01 10:04 | EKG ---
Test Reason : PREOP Blood Pressure : / mmHG Vent. Rate : 107 BPM Atrial Rate : 107 BPM P-R Int : 132 ms QRS Dur : 092 ms QT Int : 320 ms P-R-T Axes : 060 044 009 degrees QTc Int : 427 ms Sinus tachycardia with Premature atrial complexes with Abberant conduction Nonspecific T wave abnormality Abnormal ECG No previous ECGs available Confirmed by DR. Angélica LUGO ([id number]) on 06/01/2018 10:03:32 AM Referred By: TRAVIS Confirmed By:DR. Angélica LUGO
--- NOTE | 2018-06-01 10:09 | PRG ---
DATE OF SERVICE: 06/01/2018 SERVICE: Pulmonary Medicine. INTERVAL HISTORY: The patient is doing really well from a respiratory standpoint. He is coughing frequently, but not bringing much up. He denies any chest pain, nausea, vomiting, fevers, or chills. Otherwise, he is actually doing much better on a day-by-day basis. Interestingly, his LFTs have not improved. They continue to trend upward ever so gently. PHYSICAL EXAMINATION: VITAL SIGNS: Afebrile, pulse 86, blood pressure 128/72, respirations 18, saturation 94% on 2 liters nasal cannula. GENERAL: The patient is awake and alert. He is in no apparent distress. LUNGS: Decent air entry. There is rhonchi and wheezing present today. There is a slightly prolonged expiratory phase. This is the first time I have appreciated this. HEART: Normal rate, regular. ABDOMEN: Soft, nontender, nondistended. Bowel sounds are positive. MUSCULOSKELETAL: No cyanosis or clubbing. There is no pitting in the bilateral lower extremities. NEUROLOGIC: Grossly nonfocal. LABORATORY DATA: Potassium 3.4. Basic metabolic profile and phosphorus are, otherwise, unremarkable. Liver function studies include an up-trending AST and an up-trending ALT. Alkaline phosphatase falls within the normal limits. CK is also downtrending. Blood cultures x2 are unremarkable. ASSESSMENT: 1. Acute hypoxic respiratory failure, resolving. 2. Community-acquired pneumonia. 3. Severe sepsis with elevated AST, ALT, and CK. DISCUSSION AND PLAN: From the purely respiratory standpoint, the patient can be converted over to p.o. antibiotics and complete a 7-day course of antibiotics. He certainly needs repeat LFTs in the outpatient setting to make certain that these resolved completely. If they do not, an additional investigation is warranted. He is wheezing a little bit. As such, we will give him a brief 5-day course of steroids, and I will schedule some nebulized medications throughout the day, but if the patient feels up for it, he can be considered for transition home today or tomorrow depending on how his strength is doing. He needs a repeat chest x-ray in 6 weeks in the outpatient setting. I will continue to follow if he remains in-house. EDILMA
[2018-06-01] MEDS: cefTRIAXone\\ROCEPHIN 1 GM in Sodium Chloride 0.9% 100 ML IVPB SCH (11:29)
[2018-06-01] MEDS: Azithromycin 500 MG in Sodium Chloride 0.9% 250 ML 250 ML IVPB SCH (12:49)
[2018-06-01 13:08] LABS: ANA Symphony (Qualitative) Negative (Negative); ANA Symphony (Quantitative) Less than 0.07 Ratio (<0.7 Negative); CCP IgG Antibody Less than 0.4 EliAU/mL (<7 Negative); EliA RAS New Method **** NEW METHOD ****; Rheumatoid Factor IgA Antibody 3.8 IU/mL (<14 Negative); Rheumatoid Factor IgM Antibody Less than 0.5 IU/mL (<3.5 Negative); dsDNA IgG Antibody Less than 0.5 IU/mL (<10 Negative)
--- NOTE | 2018-06-01 13:42 | PDOC.PN ---
- Subjective Encounter Start Date: 06/01/18 Encounter Start Time: 13:40 Subjective: feels better but still weak and not able to wean off oxygen -: walked w and then PT using walker - Objective Resuscitation Status: Resuscitation Status FULL:Full Resuscitation MAR Reviewed: Yes Vital Signs & Weight: Vital Signs (12 hours) Temp Pulse Resp BP BP Pulse Ox 06/01/18 09:52 86 128/72 06/01/18 08:00 94 L 06/01/18 07:25 97.5 F L 86 18 128/72 94 L Weight Weight 168 lb 6.4 oz I&O: 05/31/18 06/01/18 06/02/18 06:59 06:59 06:59 Intake Total 1065 1450 360 Output Total 600 Balance 465 1450 360 Result Diagrams: 06/01/18 04:24 06/01/18 04:24 Additional Labs: Microbiology 05/28/18 12:20 Venous blood - Right Hand Blood Culture - Preliminary NO GROWTH AT 48 HOURS 05/28/18 12:20 Venous blood - Left Hand Blood Culture - Preliminary NO GROWTH AT 48 HOURS Laboratory Tests 05/28/18 05/31/18 06/01/18 13:08 03:26 04:24 Phosphorus 2.5 AST 228 H 238 H ALT 140 H 148 H Alkaline Phosphatase 72 112 Creatine Kinase 530 H 377 H Rheumatoid Factor IgA Rheumatoid Factor IgM Cycl Citrul Peptide IgG MILLA Screen MILLA IgG Screen Anti-ds DNA IgG Ab 06/01/18 06/01/18 04:24 04:24 Phosphorus AST 315 H ALT 188 H Alkaline Phosphatase 120 Creatine Kinase Rheumatoid Factor IgA 3.8 Rheumatoid Factor IgM Less than 0.5 Cycl Citrul Peptide IgG Less than 0.4 MILLA Screen Negative MILLA IgG Screen Negative Anti-ds DNA IgG Ab Less than 0.5 Phys Exam - Physical Examination Constitutional: NAD weak and tired looking HEENT: PERRLA, moist MMs, sclera anicteric, TM's clear, oral pharynx no lesions , 2+ tonsils melanoma nose Neck: no nodes, no JVD, supple, full ROM Respiratory: no wheezing, no rales, no rhonchi, clear to auscultation bilateral reduced at left side Cardiovascular: RRR, no significant murmur, no rub Gastrointestinal: soft, non-tender, no distention, positive bowel sounds Musculoskeletal: no edema, pulses present Neurological: non-focal, normal sensation, moves all 4 limbs Psychiatric: normal affect, A&O x 3 Skin: no rash Dx/Plan (1) Acute respiratory failure with hypoxia Code(s): J96.01 - ACUTE RESPIRATORY FAILURE WITH HYPOXIA Status: Acute Comment: Wean off O2 as tolerated (2) Sepsis Code(s): A41.9 - SEPSIS, UNSPECIFIED ORGANISM Status: Acute (3) PNA (pneumonia) Code(s): J18.9 - PNEUMONIA, UNSPECIFIED ORGANISM Status: Acute Qualifiers: Pneumonia type: due to Pneumococcus Laterality: left Lung location: upper lobe of lung Qualified Code(s): J13 - Pneumonia due to Streptococcus pneumoniae (4) Hyponatremia Code(s): E87.1 - HYPO-OSMOLALITY AND HYPONATREMIA Status: Acute Comment: 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.Improved (5) Melanoma Code(s): C43.9 - MALIGNANT MELANOMA OF SKIN, UNSPECIFIED Status: Acute Qualifiers: Melanoma location: nose Qualified Code(s): C43.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 Comment: Scheduled for resection as an OP (6) LFT elevation Code(s): R94.5 - ABNORMAL RESULTS OF LIVER FUNCTION STUDIES Status: Acute (7) Dyslipidemia Code(s): E78.5 - HYPERLIPIDEMIA, UNSPECIFIED Status: Chronic (8) HTN (hypertension) Code(s): I10 - ESSENTIAL (PRIMARY) HYPERTENSION Status: Chronic Qualifiers: Hypertension type: essential hypertension Qualified Code(s): I10 - Essential (primary) hypertension (9) Fall Code(s): W19.XXXA - UNSPECIFIED FALL, INITIAL ENCOUNTER Status: Acute - Plan plan discussed w/ family, continue antibiotics, PT/OT, respiratory therapy, incentive spirometry, out of bed/ambulate, DVT proph w/SCDs LFT still elevated w NL RUQ-US.unclear etiology.baseline normal -: will request GI recs . -: Difficulty to wean off oxygen-will get CT chest.r/o empyema/mass -: empiric ABx. -: OT/PT. Hh on DC.not ready for DC yet * . Review of Systems - Review of Systems Constitutional: weakness, malaise. negative: fever, chills, sweats, other ENT: negative: Ear Pain, Ear Discharge, Nose Pain, Nose Discharge, Nose Congestion, Mouth Pain, Mouth Swelling, Throat Pain, Throat Swelling, Other Respiratory: Cough, SOB with Excertion. negative: Dry, Shortness of Breath, Hemoptysis, Pleuritic Pain, Sputum, Wheezing Cardiovascular: negative: chest pain, palpitations, orthopnea, paroxysmal nocturnal dyspnea, edema, light headedness, other Gastrointestinal: negative: Nausea, Vomiting, Abdominal Pain, Diarrhea, Constipation, Melena, Hematochezia, Other Genitourinary: negative: Dysuria, Frequency, Incontinence, Hematuria, Retention , Other Musculoskeletal: negative: Neck Pain, Shoulder Pain, Arm Pain, Back Pain, Hand Pain, Leg Pain, Foot Pain, Other Skin: negative: Rash, Lesions, Fernando, Bruising, Other - Medications/Allergies Allergies/Adverse Reactions: Allergies Allergy/AdvReac Type Severity Reaction Status Date / Time No Known Allergies Allergy Unverified 05/27/18 15:23 Medications: Current Medications Acetaminophen (Tylenol) 650 mg PO Q4H PRN PRN Reason: Headache/Fever or Pain Last Admin: 05/30/18 05:05 Dose: 650 mg Hydrocodone Bitart/Acetaminophen ([place] 5/325) 1 tab PO Q4H PRN PRN Reason: Moderate Pain (4-6) Albuterol/Ipratropium (Duoneb) 3 ml NEB [id number] PRN PRN Reason: SOB &/or Wheezing Albuterol/Ipratropium (Duoneb) 3 ml NEB [id number] [facility] Stop: 06/01/18 19:01 Amlodipine Besylate (Norvasc) 5 mg PO DAILY [facility] Last Admin: 06/01/18 09:52 Dose: 5 mg Aspirin (Ecotrin) 81 mg PO DAILY [facility] Last Admin: 06/01/18 09:52 Dose: 81 mg Atorvastatin Calcium (Lipitor) 10 mg PO DAILY [facility] Last Admin: 06/01/18 09:52 Dose: 10 mg Enoxaparin Sodium (Lovenox) 40 mg SC 0900 [facility] Last Admin: 06/01/18 09:53 Dose: 40 mg Folic Acid (Folvite) 1 mg PO DAILY [facility] Last Admin: 06/01/18 09:52 Dose: 1 mg Guaifenesin (Mucinex) 600 mg PO Q12HR [facility] Last Admin: 06/01/18 09:53 Dose: 600 mg Azithromycin 500 mg/ Sodium (Chloride) 250 mls @ 250 mls/hr IVPB 1300 [facility] Last Admin: 06/01/18 12:49 Dose: 250 mls Ceftriaxone Sodium 1 gm/ (Sodium Chloride) 100 mls @ 200 mls/hr IVPB Q24HR [facility] Last Admin: 06/01/18 11:29 Dose: 100 mls Melatonin (Melatonin) 3 mg PO HS PRN PRN Reason: Insomnia Ondansetron HCl (Zofran Odt) 4 mg PO Q6H PRN PRN Reason: Nausea/Vomiting Prednisone (Prednisone) 20 mg PO QAM-WM [facility] Stop: 06/05/18 08:01 Sodium Chloride (Flush - Normal Saline) 10 ml IVF Q12HR [facility] Last Admin: 06/01/18 09:53 Dose: 10 ml Sodium Chloride (Flush - Normal Saline) 10 ml IVF PRN PRN PRN Reason: Saline Flush Zolpidem Tartrate (Ambien) 5 mg PO HSPRN PRN PRN Reason: Insomnia
--- NOTE | 2018-06-01 15:48 | CT ---
CT CHEST WITHOUT CONTRAST CT ABDOMEN WITHOUT CONTRAST CT PELVIS WITHOUT CONTRAST: Date: 06/01/18 HISTORY: Pneumonia, empyema, elevated LFTs. Weakness. COMPARISON: Chest radiograph prior day. FINDINGS: There is extensive interstitial thickening along the left lung. There are abnormal patchy air space i nfiltrates in the left lower lobe and lingula. Moderate layering left effusion. Evaluation for underl archana malignant process is limited without intravenous contrast. No significant pericardial effusion. Hypodensity intrapolar left kidney measuring fluid attenuation l ikely a cyst. No nephroureterolithiasis or hydroureteronephrosis. No secondary evidence of recently p assed stone. Urinary bladder is without calculus. There is a fluid and bowel-containing right-sided i ndirect inguinal hernia. Moderate S-shaped scoliosis thoracolumbar spine. No dilated loops of large or small bowel. Noncontrast evaluation of the liver, gallbladder, and splee n are unremarkable. Moderate diverticular disease sigmoid colon without active current inflammation. Advanced facet arthropathy lower lumbar spine. No suspicious lytic or blastic lesions. IMPRESSION: 1. Extensive interstitial and alveolar congestion of the left upper lobe lingula and left lower lobe with worse consolidation left lower lobe. Findings have appearance of multifocal bronchial pneumonia with layering infected pleural effusion. An underlying infiltrating mass cannot be totally excluded with lymphangitic spread of tumor, although is felt less likely. Close attenuation on follow-up imagi ng is recommended. Bronchoscopy if warranted. 2. No nephroureterolithiasis or hydroureteronephrosis. No secondary evidence of recently passed ston e. 3. Small right-sided and left-sided fluid and bowel containing indirect inguinal hernias. No evidenc e of obstruction. POS: [facility]
--- NOTE | 2018-06-01 23:12 | CON ---
DATE OF CONSULTATION: 06/01/2018 CHIEF COMPLAINT: Abnormal liver tests. HISTORY OF PRESENT ILLNESS: Mr. Piper is a 77-year-old man who presented for day surgery to remove a small melanoma from his scalp. While he was there, he was noted to have had a cough for about a we ek and severe weakness and fevers and chills. He had fallen the day before on his face. Internal Me brayanine was consulted and evaluated the patient. He was found to have pneumonia in the left upper lob e. He was admitted and started on IV antibiotics. He has hypoxic and he is still requiring oxygen b y nasal cannula now. He was admitted 5 days ago. He is also noted to have elevated liver transamina ses. His bilirubin and alkaline phosphatase have been normal, but his AST and ALT have been in the 1 50-300 range. He has had no jaundice or itching. No prior history of hepatitis. He drinks a glass of wine in the evenings and maybe has 2 glasses once a week. PAST MEDICAL HISTORY: Hyperlipidemia, hypertension. PAST SURGICAL HISTORY: Had Mohs procedure for prior skin cancers, currently as an melanoma on his sc alp awaiting excision. FAMILY HISTORY: Negative for GI malignancies. SOCIAL HISTORY: The patient's last colonoscopy was 5-10 years ago in [place]. HABITS: He drinks a glass of wine each evening; some around once per week he has 2 glasses of wine. No smoking, no drugs. ALLERGIES: No known drug allergies. MEDICATIONS: Prior to admission, atorvastatin, amlodipine, aspirin currently in the hospital, he is taking amlodipine, aspirin, atorvastatin, azithromycin, ceftriaxone, enoxaparin, folic acid, predniso ne. REVIEW OF SYSTEMS: Negative x10 systems reviewed except as stated in history of present illness. PHYSICAL EXAMINATION: VITAL SIGNS: Temperature 97.5, pulse 90, respiration 18-14, oxygen saturation 94% on 2 liters nasal cannula, blood pressure 128/72. GENERAL: He is in no acute distress. He is alert and oriented x3. HEENT: Eyes have no scleral icterus. Oropharynx is clear, without lesions. NECK: No cervical or supraclavicular lymphadenopathy. LUNGS: Clear to auscultation bilaterally. HEART: Regular rate and rhythm without murmur. ABDOMEN: Soft, nontender, nondistended. Bowel sounds are present. EXTREMITIES: No lower extremity edema. LABORATORY DATA: Creatinine 0.68. Iron 37, TIBC 129, AST 315, ALT 188, bilirubin 1.0, alkaline phos phatase 120, albumin 2.5. On presentation on 05/28/2018, the bilirubin was 1.1, AST 228, ALT 140, al kaline phosphatase 72, albumin 3.0. Ultrasound of the liver was unremarkable. IMAGING: CT scan of the chest, abdomen, and pelvis showed the pneumonia in the left upper lobe. Aziza er and biliary system are unremarkable. IMPRESSION: 1. Abnormal liver function tests. He has primarily a hepatocellular injury pattern with elevation o f the AST greater than ALT up to 10 times upper limit of normal range. This most likely is secondary to sepsis from the pneumonia, possibly ischemic hepatopathy. We should see these trend down over e next several days. He was on a statin prior to admission, but I doubt this is the cause of the acu te elevation of his liver tests. He has a glass of wine each evening with 2 glasses once a week and again the AST greater than ALT can be a sign of alcohol-induced hepatitis, however, the degree of alc ohol consumption does not really match. I would not be expected elevation of the liver test. There is no Tylenol ingestion concomitantly with that. His liver tests were elevated on first presen tation so doubts current antibiotics are related to the transaminitis. Again, the alkaline phosphata se and bilirubin have been normal. RECOMMENDATIONS: 1. Check viral hepatitis panel. 2. Iron saturation was noted to be normal. We will check an alpha-1 antitrypsin level and autoimmun e markers. 3. Advised to abstain from all alcohol until after we see his liver tests returned to normal. 4. Hold atorvastatin for now. 5. Check LDH and monitor trend of the liver tests.
[2018-06-02 04:57] LABS: INR-International Normal Ratio 1.2; Prothrombin Time 15.7 SEC (12.0-14.7)
[2018-06-02 05:42] LABS: HBCM Index 0.06 S/CO (0-0.79); HBSAB Concentration 0.38 mIU/mL; HBSAg Index 0.16 S/CO (0-0.99); Hep A IgM AB Non-Reactive (NonReactive); Hep A IgM S/CO 0.06 S/CO (0-0.79); Hep B Core Total Ab Non-Reactive (NonReactive); Hep B Core Total Index 0.06 S/CO (0-0.79); Hep B Surf AB Non-Reactive (NonReactive); Hep B Surf Ag Non-Reactive S/CO (NonReactive); Hep C IgG Ab Non-Reactive (NonReactive); Hep C Index 0.08 S/CO (0-0.79); Hepatitis B Core IGM Abs Non-Reactive (NonReactive)
[2018-06-02] MEDS ORDERED: predniSONE 20 MG TAB PO SCH (08:00)
[2018-06-02] MEDS: Amlodipine 5 MG TAB PO SCH (08:35)
[2018-06-02] MEDS: Aspirin 81 mg Enteric Coated Tablet PO SCH (08:35)
[2018-06-02] MEDS: guaiFENesin ER 600 MG TAB PO SCH (08:35)
[2018-06-02] MEDS: Folic Acid 1 MG TAB PO SCH (08:35)
[2018-06-02] MEDS: Atorvastatin Calcium 10 MG TAB PO SCH (08:36)
[2018-06-02] MEDS: Enoxaparin Sodium 40 MG/0.4 ML SYRINGE SC SCH (08:36)
[2018-06-02 11:23] VITALS: BP 135/75; TEMP 97.5
[2018-06-02] MEDS: cefTRIAXone\\ROCEPHIN 1 GM in Sodium Chloride 0.9% 100 ML IVPB SCH (11:30)
[2018-06-02] MEDS: Azithromycin 500 MG in Sodium Chloride 0.9% 250 ML 250 ML IVPB SCH (12:22)
--- NOTE | 2018-06-02 14:49 | PRG ---
DATE OF SERVICE: 06/02/2018 SERVICE: Pulmonary Medicine. INTERVAL HISTORY: The patient is doing really well from a respiratory standpoint. He denies any cur rent chest pain, nausea, vomiting, fevers, or chills. His strength is improving day by day. Today, he went walking without oxygen and did not develop significant dyspnea. I check his saturations on r oom air and he is 94%. Otherwise, there has been no interval change to his condition. He actually f eels strong enough to get out of here today. PHYSICAL EXAMINATION: VITAL SIGNS: Afebrile, pulse 72, blood pressure 135/75, respirations 20, saturation 95% on room air. GENERAL: The patient is awake, alert, in no apparent distress. LUNGS: Excellent air entry. The crackles are improved on the left. There is no prolonged expirator y phase or wheezing present. I do not appreciate rhonchi. HEART: Normal rate, regular. ABDOMEN: Soft, nontender, nondistended. Bowel sounds are positive. MUSCULOSKELETAL: No cyanosis or clubbing. There is no pitting in the bilateral lower extremities. NEUROLOGIC: Grossly nonfocal. LABORATORY DATA: WBC 9.7, hemoglobin 10.8, platelets 277,000. INR 1.2. LDH 624, CK continues to tr end downward to 245. MILLA and rheumatoid factor are unremarkable. Strep and legionella urine antigen s are negative. Hepatitis serologies are also normal. Blood cultures are negative x2. IMAGING: CT of the chest demonstrates left-sided infiltrates, which are scattered throughout bilater al upper and lower lobes. The right side of the lung is not involved at all. There is a very small layering pleural effusion. ASSESSMENT: 1. Acute hypoxic respiratory failure, resolved. 2. Community-acquired pneumonia. 3. Severe sepsis with elevated AST, ALT, and CK. DISCUSSION AND PLAN: The CK is trending down. We did not repeat the LFTs this morning. These need to be repeated in the outpatient setting to verify that they resolve. If they do not, additional sophie gnostic studies will be warranted. He does not have any abdominal discomfort. He is not having any significant shortness of breath anymore, and his strength is improved every day over the last 5 days. From my perspective, he can be transitioned out of the hospital on oral Omnicef and azithromycin. We will repeat a chest x-ray in 6 weeks. If the infiltrate persists, bronchoscopy will be performed. If he remains in-house, I will continue to follow, but from a purely respiratory perspective, he is perfectly stable for transition out of the hospital.
--- NOTE | 2018-06-03 02:22 | DIS ---
DATE OF ADMISSION: 05/28/2018 DATE OF DISCHARGE: 06/02/2018 CONDITION AT THE TIME OF DISCHARGE: Stable and improved. PRIMARY CARE PHYSICIAN: Dr. Joseph Piper. DISCHARGE DIAGNOSES: 1. Acute hypoxic respiratory failure. 2. Community-acquired pneumonia. 3. Severe sepsis with elevated AST, ALT and CK. 4. Melanoma, needing resection. 5. Elevated liver enzymes of unclear etiology. 6. Folic acid deficiency. DISCHARGE MEDICATIONS: As follows: Amlodipine 1 tablet daily, atorvastatin 1 tablet daily, aspirin 1 tablet daily, Medrol Dosepak, Mucinex 600 p.o. b.i.d., Florastor 250 mg daily, nebulizer, DuoNeb q. 6 hours p.r.n., folic acid 1 mg daily, Omnicef 300 mg p.o. b.i.d. for 7 days and azithromycin 500 mg daily for 7 days. INHOUSE CONSULTATIONS: 1. Gastroenterology, Dr. Paul Benjamin. 2. Pulmonary Medicine, Dr. Cespedes. PROCEDURES DONE IN HOSPITAL: Include; 1. Abdominal ultrasound, which is unremarkable. 2. CT scan of the chest, abdomen, and pelvis without contrast, which showed extensive interstitial a nd alveolar congestion of the left upper lobe and left lower lobe with consolidation of left lower lo be suggesting multifocal bronchial pneumonia. 3. CT scan of the abdomen and pelvis is unremarkable. HISTORY OF PRESENTING ILLNESS: Mr. Piper is a very pleasant 77-year-old male, who has melanoma on h is nose and scheduled for resection as an outpatient, presented to the emergency room for complaints of fever, chills, sweat, nonproductive cough and some shortness of breath. He was found to be in acu te hypoxic respiratory failure and chest x-ray suggested left-sided pneumonia. He was started on IV antibiotics. Cultures were obtained and he was admitted with a presumptive diagnosis of sepsis. Ple ase see admission history and physical for further detail. HOSPITAL COURSE: Pulmonary Medicine was consulted because of the patient's severity of symptoms and Dr. Cespedes follow the patient along. The patient had slow improvement in his symptoms with IV antib iotics. Blood cultures remain negative. He was noticed to have elevated liver enzymes, which did no t trend down as expected. His AST and ALT were in the 200s and 140s range with normal alkaline phosp hatase and total bilirubin. His folic acid was found to be low. GI was consulted with persistent elevation of LFTs and Dr. Benjamin saw the patient and recommended outp atient followup and multiple other studies were sent including alpha-1 antitrypsin, viral hepatitis p dutch which was negative. Atorvastatin was held while in the hospital. He did undergo CT scan of the chest, abdomen, and pelvis because of slow improvement and oxygen requi rements. He just confirmed the finding of severe pneumonia. As of this morning, the patient is feeling very well and is eager to go home. He has been weaned off of oxygen to room air and is saturating 94%. He has been cleared by Pulmonary Medicine for discharg e as well. He is given oral antibiotics and discharge and will follow up with Dr. Cespedes in the out patient setting. He was seen and examined prior to discharge. Discharge plan was discussed with the patient and his w emma, who verbalized understanding and prescriptions were provided. All questions answered. PHYSICAL EXAMINATION: VITAL SIGNS: This morning, temperature 97.5, pulse of 72, respirations 20, saturating 95% on room ai r, blood pressure 135/75. GENERAL: No acute distress. Awake, alert, and oriented x3. CHEST: Clear to auscultation except decreased breath sounds on the left side. CARDIOVASCULAR: Rate and rhythm is regular without any murmur, rubs or gallops. ABDOMEN: Soft, nontender, nondistended with positive bowel sounds. Total time spent 35 minutes.
[2018-06-03 14:47] LABS: EliA Vaculitis New Method **** NEW METHOD ****; Mitochondrial Ab Less than 0.5 U/mL (<4 Negative)
[2018-06-04 15:45] LABS: Alpha-1-Antitrypsin 305 mg/dL (90-200)
[2018-06-05 15:26] LABS: Smooth Muscle Total ABS 16 Units (0-19)
== END 2018-06-02 12:43 | disposition home or self-care (01) | DRG 871 ==
LOC: SDC 10:00 → T4-B 11:52
PROVIDERS: ADMIT Internal Medicine; ATTEND Internal Medicine
DX: A41.9 Sepsis, unspecified organism (principal); J96.01 Acute respiratory failure with hypoxia; J13 Pneumonia due to Streptococcus pneumoniae; E87.1 Hypo-osmolality and hyponatremia; N17.9 Acute kidney failure, unspecified; C43.9 Malignant melanoma of skin, unspecified; R65.20 Severe sepsis without septic shock; I10 Essential (primary) hypertension; Z79.82 Long term (current) use of aspirin; E78.5 Hyperlipidemia, unspecified; C43.4 Malignant melanoma of scalp and neck; E83.39 Other disorders of phosphorus metabolism; Z91.81 History of falling
CPT/HCPCS: 36415; 36416; 71046; 71250; 74177; 76705; 80048; 80053; 80074; 80076; 82085; 82103; 82104; 82550; 82607; 82746; 83516; 83520; 83540; 83550; 83615; 83735; 84100; 84443; 85025; 85610; 86038; 86200; 86225; 86704; 86706; 87040; 87899; 93005; 93010; 94640; A4216; G8978-GP-CJ; G8979-GP-CI; J0456; J0696; J1650; J7050; J7506; J7620; Q0162

== ENCOUNTER 2018-06-04 10:44 | Day surgery (SDC) | payer MEDICARE ==
[2018-06-03 15:17] VITALS: BMI 23.7
[~2018-06-04 10:44] MED LIST: Glycopyrrolate 0.2 MG/ML 5 ML SYRINGE ONE; Lidocaine 1% PF 5 ML VIAL ONE; Ondansetron HCl/PF 4 MG/2 ML Vial ONE; PHENYLEPHRINE-NS 100 MCG/ML 10 ML SYRINGE ONE; PROPOFOL 200 MG/20 ML VIAL ONE
[2018-06-04] MEDS ORDERED: Lidocaine 2% PF Inj 2 ML VIAL ONE (11:57)
[2018-06-04] MEDS ORDERED: Bupivacaine/Epinephrine 0.25% 30 ML VIAL ONE (11:57)
[2018-06-04] MEDS ORDERED: Lidocaine 1% w/Epinephrine 1:100K 30 ML VIAL ONE (11:57)
[2018-06-04] MEDS ORDERED: Bacitracin Zinc Ointment 30 gm TUBE ONE (11:57)
[2018-06-04] MEDS ORDERED: Fentanyl 100 MCG/2 ML VIAL ONE (12:08)
--- NOTE | 2018-06-04 19:24 | OP ---
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 PROCEDURES PERFORMED: 1. Wide local excision of malignant lentigo maligna melanoma of the scalp with split-thickness skin graft reconstruction. 2. [place] of 16 cubic cm2 donor skin donation site via a split-thickness skin graft from the right upper chest. PROCEDURE IN DETAIL: After consent was obtained, the patient was identified, brought to the operatin g room and placed on the operating table in supine position. General anesthesia was obtained. [facility] was positioned for surgery. The posterior scalp was shaved, prepped, and draped and the lesio n was delineated. We then created a 1.5 cm margin around the lesion and delineated it with a marking pen. We then infiltrated the area with 1% lidocaine with 1:100,000 epinephrine and performed an exc isional wide local excision down to the level of the scalp galea and that was marked and sent for his tologic evaluation. We then turned our attention, we measured the defect which was 4 cm in circular and measured a similar lesion on the area on the right upper chest, which was prepped and draped and infiltrated with 0.25% Marcaine with 1:100,000 epinephrine. We then performed a free hand split-thic kness skin graft using a #10 blade and it matched the defect perfectly. We then relocated the skin g raft into the defect and suture secured it to the marginal epithelium of the defect with 6-0 rapidly absorbing gut. A standard bolster was then fashioned using Xeroform, mineral oil, cotton balls and 2 -0 silk stay sutures. This was then secured in place. Attention was turned back to the right chest, the lateral aspects of the round graft was extended to make an elliptical defect, which was closed i n two layers using Monocryl for the deep layers and 6-0 Prolene for the skin. The patient was awaken ed, extubated, and taken to recovery room, remained in stable condition prior to discharge home.
== END 2018-06-04 15:30 | disposition home or self-care (01) ==
LOC: SDC 10:44
PROVIDERS: ATTEND Specialist
PROC: 0HR0X73 Replacement of Scalp Skin with Autologous Tissue Substitute, Full Thickness, External Approach (ICD-10-PCS; principal; 2018-06-04)
DX: C43.4 Malignant melanoma of scalp and neck (principal); I10 Essential (primary) hypertension; E78.5 Hyperlipidemia, unspecified; F41.9 Anxiety disorder, unspecified; Z85.828 Personal history of other malignant neoplasm of skin; Z87.891 Personal history of nicotine dependence; Z79.82 Long term (current) use of aspirin; Z79.52 Long term (current) use of systemic steroids; Z79.899 Other long term (current) drug therapy; Z98.890 Other specified postprocedural states
CPT/HCPCS: 88305; 88341; 88342; J2001; J2405; J2704; J3010

== ENCOUNTER 2018-06-11 10:36 | Outpatient (CLI) | payer MEDICARE ==
--- NOTE | 2018-06-11 11:23 | RAD ---
TWO VIEWS CHEST: Date: 06-11-18 Provided Clinical History: Dyspnea. FINDINGS: Comparison 05-31-18. Cardiac and mediastinal silhouette is unchanged in appearance. Emphysematous changes are again seen. Interval marked improvement of previously described left hemithoracic airspace disease. No pleural fl uid or pneumothorax apparent. Scoliosis of the thoracolumbar spine is redemonstrated. IMPRESSION: Interval resolution of previously described left hemithoracic airspace disease. POS: DONG
== END 2018-06-11 10:37 | disposition home or self-care (01) ==
LOC: RAD 10:36
PROVIDERS: ATTEND Internal Medicine
DX: R06.00 Dyspnea, unspecified (principal)
CPT/HCPCS: 71046

== ENCOUNTER 2018-06-20 07:03 | Emergency (ER) | payer MEDICARE ==
[2018-06-20] MEDS ORDERED: Lidocaine 1% 20 ML MDV ONE (07:29)
== END 2018-06-20 08:01 | disposition home or self-care (01) ==
LOC: SCSER 07:03
DX: T81.31XA Disruption of external operation (surgical) wound, not elsewhere classified, initial encounter (principal); I10 Essential (primary) hypertension; Z87.891 Personal history of nicotine dependence; Z79.899 Other long term (current) drug therapy
CPT/HCPCS: 12002; J2001

== ENCOUNTER 2019-01-06 08:55 | Emergency (ER) | payer MEDICARE ==
[2019-01-06] MEDS ORDERED: cefTRIAXone\\ROCEPHIN 1 GM VIAL ONE (09:15)
[2019-01-06] MEDS ORDERED: predniSONE 20 MG TAB ONE ×2 (09:15→09:24)
[2019-01-06] MEDS ORDERED: Lidocaine 1% 20 ML MDV ONE (09:17)
== END 2019-01-06 09:44 | disposition home or self-care (01) ==
LOC: SCSER 08:55
DX: L03.213 Periorbital cellulitis (principal); I10 Essential (primary) hypertension; Z87.891 Personal history of nicotine dependence; Z79.899 Other long term (current) drug therapy; Z79.82 Long term (current) use of aspirin
CPT/HCPCS: 99283; J0696; J2001; J7512

== ENCOUNTER 2019-07-20 08:34 | Emergency (ER) | payer MEDICARE ==
[2019-07-20] MEDS ORDERED: Ondansetron PF 4 MG/2 ML Vial ONE (08:42)
[2019-07-20 08:56] LABS: #Lymphocytes 0.9 thou/uL (1.20-3.40); #Monocytes 0.3 thou/uL (0.11-0.59); #Neutrophils 7.1 thou/uL (1.40-6.50); %Basophils 0.6 % (0.0-1.0); %Lymphocytes 11.2 % (21.0-51.0); %Monocytes 3.5 % (0.0-10.0); %Neutrophils 84.7 % (42.0-75.0); Hemoglobin 15.5 g/dL (14.0-18.0); Mean Corpuscular HGB CONC 32.8 g/dL (32.0-36.0); Mean Corpuscular Hemoglobin 30.5 pg (27.0-31.0); Mean Corpuscular Volume 93.1 fL (78.0-98.0); Platelet Count 280 thou/uL (130-400); RBC Distribution Width 12.1 % (11.5-14.5); Red Blood Cell (RBC) Count 5.08 mill/uL (4.70-6.10); White Blood Cell (WBC) Count 8.4 thou/uL (4.8-10.8)
[2019-07-20 09:07] LABS: ALT (SGPT) 14 U/L (8-55); AST (SGOT) 15 U/L (5-34); Albumin 4.7 g/dL (3.4-4.8); Alkaline Phosphatase 64 U/L (40-110); Anion Gap 19 mmol/L (10-20); BUN (Urea Nitrogen) 15 mg/dL (8.4-25.7); Bilirubin, Total 0.8 mg/dL (0.2-1.2); Calc. Creatinine Clearance 0 mL/min (70-130); Carbon Dioxide 23 mmol/L (23-31); Chloride 105 mmol/L (98-107); Estimated GFR-MDRD 70; Glucose 146 mg/dL (83-110); Lipase 18 U/L (8-78); Potassium 3.9 mmol/L (3.5-5.1); Protein, Total 7.7 g/dL (5.8-8.1); Sodium 143 mmol/L (136-145)
== END 2019-07-20 10:15 | disposition home or self-care (01) ==
LOC: SCSER 08:34
DX: R11.2 Nausea with vomiting, unspecified (principal); E78.5 Hyperlipidemia, unspecified; I10 Essential (primary) hypertension; Z87.891 Personal history of nicotine dependence; Z79.82 Long term (current) use of aspirin; Z79.899 Other long term (current) drug therapy
CPT/HCPCS: 80053; 83690; 84484; 85025; 96361; 96374; J2405

== ENCOUNTER 2019-07-23 13:23 | Outpatient (CLI) | payer MEDICARE ==
[~2019-07-23 13:23] MED LIST changes: -Glycopyrrolate 0.2 MG/ML 5 ML SYRINGE ONE; +Iopamidol 370 76% 100 ML VIAL ONE; -Lidocaine 1% PF 5 ML VIAL ONE; -Ondansetron HCl/PF 4 MG/2 ML Vial ONE; -PHENYLEPHRINE-NS 100 MCG/ML 10 ML SYRINGE ONE; -PROPOFOL 200 MG/20 ML VIAL ONE
--- NOTE | 2019-07-23 14:05 | CT ---
CT Abdomen Pelvis W Con: 07/23/2019 12:00 AM CLINICAL INFORMATION: Nausea and vomiting; abdominal bloating COMPARISON: 06/01/2018 TECHNIQUE: Multiple contiguous axial images were obtained and a CT of the abdomen and pelvis with IV contrast. Oral contrast was administered. Coronal and sagittal reformats were performed. FINDINGS: Lower Chest: within normal limits. Abdomen: Liver: within normal limits. Bile Ducts: Normal caliber. Gallbladder: No calcified gallstones. Normal caliber wall. Pancreas: within normal limits. Spleen: within normal limits. Adrenals: within normal limits. Kidneys: 3.2 cm left renal cyst. Pelvis: Reproductive Organs: No pelvic masses. Ureters: within normal limits. Bladder: within normal limits. Peritoneum: No ascites or free air, no fluid collection. Bowel: Normal caliber. Scattered diverticula in the colon. Normal appendix. Mesentery and Retroperitoneum: No enlarged mesenteric or retroperitoneal lymph nodes. Vessels: Atherosclerotic calcifications. Abdominal Wall: Small bilateral inguinal hernias containing nonobstructed bowel Bones: Degenerative changes in the spine. IMPRESSION: 1. No evidence of acute intraabdominal or pelvic abnormality. 2. Left renal cyst 3. Diverticulosis 4. Bilateral inguinal hernias
== END 2019-07-23 13:24 | disposition home or self-care (01) ==
LOC: SCSCT 13:23
PROVIDERS: ATTEND Family Medicine
DX: R11.2 Nausea with vomiting, unspecified (principal); N28.1 Cyst of kidney, acquired; K57.90 Diverticulosis of intestine, part unspecified, without perforation or abscess without bleeding; K40.20 Bilateral inguinal hernia, without obstruction or gangrene, not specified as recurrent
CPT/HCPCS: 36415; 74177; 80053; 83690; 85025; Q9967

== ENCOUNTER 2019-07-26 14:17 | Emergency (ER) | payer MEDICARE ==
[2019-07-26] MEDS ORDERED: Ondansetron PF 4 MG/2 ML Vial ONE (14:51)
[2019-07-26 15:07] LABS: #Basophils 0.1 thou/uL (0.0-0.2); #Eosinphils 0.1 thou/uL (0.0-0.7); #Lymphocytes 1.8 thou/uL (1.20-3.40); #Monocytes 0.7 thou/uL (0.11-0.59); #Neutrophils 7.4 thou/uL (1.40-6.50); %Basophils 0.8 % (0.0-1.0); %Eosinophils 0.8 % (0.0-10.0); %Lymphocytes 18.2 % (21.0-51.0); %Monocytes 6.7 % (0.0-10.0); %Neutrophils 73.4 % (42.0-75.0); Hemoglobin 16.8 g/dL (14.0-18.0); Mean Corpuscular HGB CONC 33.1 g/dL (32.0-36.0); Mean Corpuscular Hemoglobin 30.2 pg (27.0-31.0); Mean Corpuscular Volume 91.3 fL (78.0-98.0); Mean Platelet Volume 8.7 fL (7.4-10.4); Platelet Count 293 thou/uL (130-400); RBC Distribution Width 11.5 % (11.5-14.5); Red Blood Cell (RBC) Count 5.56 mill/uL (4.70-6.10); White Blood Cell (WBC) Count 10.1 thou/uL (4.8-10.8)
[2019-07-26 15:25] LABS: ALT (SGPT) 14 U/L (8-55); AST (SGOT) 16 U/L (5-34); Albumin 4.4 g/dL (3.4-4.8); Alkaline Phosphatase 60 U/L (40-110); Anion Gap 17 mmol/L (10-20); BUN (Urea Nitrogen) 14 mg/dL (8.4-25.7); Bilirubin, Total 1.1 mg/dL (0.2-1.2); Calc. Creatinine Clearance 0 mL/min (70-130); Calcium 9.8 mg/dL (7.8-10.44); Carbon Dioxide 26 mmol/L (23-31); Chloride 99 mmol/L (98-107); Estimated GFR-MDRD 66; Globulin 2.8 g/dL (2.4-3.5); Glucose 107 mg/dL (83-110); Lipase 62 U/L (8-78); Potassium 3.3 mmol/L (3.5-5.1); Protein, Total 7.2 g/dL (5.8-8.1); Sodium 139 mmol/L (136-145)
--- NOTE | 2019-07-26 15:48 | RAD ---
ACUTE ABDOMINAL SERIES: Date: 07/26/19 INDICATION: Vomiting. FINDINGS: No free air is seen beneath the hemidiaphragms. There is prominent dextroscoliosis of the thoracic sp ine. Lungs are hyperinflated without consolidation or effusion. Cardiac silhouette is accentuated by scoliotic curvature. Prominent levoscoliosis of the lumbar spine is present. Bowel gas pattern is non obstructed. There is retained enteric contrast of the colon and scattered opacified colonic diverticu la. IMPRESSION: 1. No acute abnormalities. 2. Colonic diverticulosis with retained enteric contrast of the colon. 3. S-shaped scoliosis of thoracolumbar spine. POS: C
[2019-07-26 17:49] LABS: Bilirubin Negative (Negative); Blood, Urine Negative (Negative); Clarity Clear (Clear); Glucose, Urine (Dipstick) Negative (Negative); Leukocyte Negative (Negative); Nitrite Negative (Negative); Protein, Urine (Dipstick) Negative (Neg-Trace)
[2019-07-26] MEDS ORDERED: Aspirin Chewable 81 MG TAB ONE (18:45)
== END 2019-07-26 18:48 | disposition home or self-care (01) ==
LOC: SCSER 14:17
DX: K57.30 Diverticulosis of large intestine without perforation or abscess without bleeding (principal); E86.0 Dehydration; E78.5 Hyperlipidemia, unspecified; I10 Essential (primary) hypertension; Z87.891 Personal history of nicotine dependence
CPT/HCPCS: 36415; 74022; 80053; 81003; 83605; 83690; 83880; 84484; 85025; 93005; 96361; 96374; J2405

== ENCOUNTER 2019-08-11 08:04 | Outpatient (CLI) | payer MEDICARE ==
--- NOTE | 2019-08-11 08:22 | ULT ---
US Renal Bilateral STANDARD: 08/11/2019 12:00 AM CLINICAL HISTORY: Hypertension. STUDY: Renal ultrasound COMPARISON: None. FINDINGS: Right kidney: Echogenicity: Normal. Masses/cysts: None. Hydronephrosis: None. Calcifications: None. Length: 10.1 cm Left kidney: Echogenicity: Normal. Masses/cysts: 3.3 cm cyst Hydronephrosis: None. Calcifications: None. Length: 11.0 cm Limited visualization of the urinary bladder is unremarkable. IMPRESSION: Left renal cyst
== END 2019-08-11 08:05 | disposition home or self-care (01) ==
LOC: SCSULT 08:04
PROVIDERS: ATTEND Internal Medicine Cardiovascular Disease
DX: I10 Essential (primary) hypertension (principal); N28.1 Cyst of kidney, acquired
CPT/HCPCS: 76770

== ENCOUNTER 2019-08-11 17:31 | Emergency (ER) | payer MEDICARE ==
[2019-08-11] MEDS ORDERED: Metoclopramide HCl 10 MG/2 ML VIAL ONE (18:10)
[2019-08-11] MEDS ORDERED: Ondansetron PF 4 MG/2 ML Vial ONE (18:10)
[2019-08-11] MEDS ORDERED: Famotidine/PF 20 mg/2ml Vial ONE (18:10)
[2019-08-11 18:38] LABS: #Basophils 0.1 thou/uL (0.0-0.2); #Lymphocytes 1.1 thou/uL (1.20-3.40); #Monocytes 0.4 thou/uL (0.11-0.59); #Neutrophils 10.6 thou/uL (1.40-6.50); %Basophils 0.7 % (0.0-1.0); %Eosinophils 0.2 % (0.0-10.0); %Lymphocytes 8.6 % (21.0-51.0); %Monocytes 3.4 % (0.0-10.0); %Neutrophils 87.1 % (42.0-75.0); Hemoglobin 15.3 g/dL (14.0-18.0); Mean Corpuscular HGB CONC 32.8 g/dL (32.0-36.0); Mean Corpuscular Hemoglobin 30.4 pg (27.0-31.0); Mean Corpuscular Volume 92.6 fL (78.0-98.0); Mean Platelet Volume 8.5 fL (7.4-10.4); Platelet Count 271 thou/uL (130-400); Red Blood Cell (RBC) Count 5.03 mill/uL (4.70-6.10); White Blood Cell (WBC) Count 12.2 thou/uL (4.8-10.8)
[2019-08-11 18:51] LABS: Lipase 16 U/L (8-78)
[2019-08-11 19:16] LABS: ALT (SGPT) 13 U/L (8-55); AST (SGOT) 12 U/L (5-34); Albumin 4.3 g/dL (3.4-4.8); Alkaline Phosphatase 55 U/L (40-110); Anion Gap 21 mmol/L (10-20); BUN (Urea Nitrogen) 14 mg/dL (8.4-25.7); Calc. Creatinine Clearance 0 mL/min (70-130); Calcium 10.1 mg/dL (7.8-10.44); Carbon Dioxide 21 mmol/L (23-31); Chloride 106 mmol/L (98-107); Estimated GFR-MDRD 72; Globulin 2.7 g/dL (2.4-3.5); Glucose 119 mg/dL (83-110); Potassium 3.9 mmol/L (3.5-5.1); Sodium 144 mmol/L (136-145)
--- NOTE | 2019-08-13 15:41 | EKG ---
Test Reason : HIGH BP Blood Pressure : / mmHG Vent. Rate : 077 BPM Atrial Rate : 077 BPM P-R Int : 152 ms QRS Dur : 092 ms QT Int : 390 ms P-R-T Axes : 065 001 048 degrees QTc Int : 441 ms Normal sinus rhythm Cannot rule out Inferior infarct , age undetermined Anterior infarct , age undetermined Movement artifact in V3 limiths intrpretation Abnormal ECG Confirmed by LORNA MOYER, SERGIO ([id number]), film and video editor LANA STACY ([id number]) on 08/13/2019 3:41:26 PM Referred By: Confirmed By:SERGIO ROTHMAN MD
== END 2019-08-11 19:55 | disposition home or self-care (01) ==
LOC: SCSER 17:31
DX: R11.2 Nausea with vomiting, unspecified (principal); E78.5 Hyperlipidemia, unspecified; I10 Essential (primary) hypertension; Z87.891 Personal history of nicotine dependence
CPT/HCPCS: 80053; 83690; 84484; 85025; 93005; 96365; 96375; J2405; J2765; S0028

== ENCOUNTER 2019-08-16 15:02 | Observation (INO) | payer MEDICARE ==
[2019-08-16] MEDS ORDERED: Ondansetron PF 4 MG/2 ML Vial ONE (16:20)
[2019-08-16 16:27] LABS: #Eosinphils 0.1 thou/uL (0.0-0.7); #Lymphocytes 1.7 thou/uL (1.20-3.40); #Monocytes 0.7 thou/uL (0.11-0.59); #Neutrophils 6.2 thou/uL (1.40-6.50); %Basophils 0.4 % (0.0-1.0); %Eosinophils 1.5 % (0.0-10.0); %Lymphocytes 19.1 % (21.0-51.0); %Monocytes 7.6 % (0.0-10.0); %Neutrophils 71.3 % (42.0-75.0); Hemoglobin 15.1 g/dL (14.0-18.0); Mean Corpuscular HGB CONC 34.3 g/dL (32.0-36.0); Mean Corpuscular Hemoglobin 31.8 pg (27.0-31.0); Mean Corpuscular Volume 92.8 fL (78.0-98.0); Mean Platelet Volume 8.6 fL (7.4-10.4); Platelet Count 257 thou/uL (130-400); RBC Distribution Width 11.8 % (11.5-14.5); Red Blood Cell (RBC) Count 4.74 mill/uL (4.70-6.10); White Blood Cell (WBC) Count 8.7 thou/uL (4.8-10.8)
[2019-08-16 16:37] LABS: ALT (SGPT) 14 U/L (8-55); AST (SGOT) 15 U/L (5-34); Albumin 4.3 g/dL (3.4-4.8); Alkaline Phosphatase 48 U/L (40-110); Anion Gap 15 mmol/L (10-20); BUN (Urea Nitrogen) 20 mg/dL (8.4-25.7); Bilirubin, Total 1.4 mg/dL (0.2-1.2); Calc. Creatinine Clearance 0 mL/min (70-130); Calcium 9.8 mg/dL (7.8-10.44); Carbon Dioxide 30 mmol/L (23-31); Chloride 93 mmol/L (98-107); Estimated GFR-MDRD 55; Globulin 2.7 g/dL (2.4-3.5); Glucose 113 mg/dL (83-110); Lipase 26 U/L (8-78); Potassium 3.7 mmol/L (3.5-5.1); Sodium 134 mmol/L (136-145)
--- NOTE | 2019-08-16 17:32 | RAD ---
EXAM: ONE VIEW CHEST TWO VIEWS ABDOMEN Comparison: 07-26-2019 HISTORY: Evaluate for obstruction FINDINGS: Chest one view: Normal cardiac silhouette. Pulmonary vessels and hilum are normal. Costophrenic angles are clear. No consolidation or mass. No pneumothorax. Stable rightward scoliotic curvature. 2 views abdomen: Nonspecific bowel gas pattern. No suspicious densities in the abdomen or pelvis. No differential air- fluid levels. No pneumoperitoneum. Stable phlebolith in the right hemipelvis. Stable leftward curvature of the lumbar spine. IMPRESSION: 1. No acute cardiopulmonary process. 2. Nonspecific bowel gas pattern. 3. Stable S-shaped scoliosis Transcribed Date/Time: 08/16/2019 5:56 PM
[2019-08-16] MEDS ORDERED: Acetaminophen 325 MG TAB PO PRN (19:41)
[2019-08-16] MEDS ORDERED: Senokot S 8.6-50 MG TAB PO PRN (19:41)
[2019-08-16] MEDS ORDERED: cloNIDine 0.1 MG TAB PO PRN (19:46)
[2019-08-16] MEDS ORDERED: Ondansetron PF 4 MG/2 ML Vial IVP PRN (19:53)
[2019-08-16] MEDS: Sodium Chloride 0.9% 1,000 ML IV SCH (20:39)
[2019-08-16] MEDS: Pantoprazole 40 MG VIAL IVP SCH (20:43)
[2019-08-16] MEDS: Metoclopramide HCl 10 MG/2 ML VIAL IVP SCH (22:32)
[2019-08-16 23:16] LABS: Bacteria/HPF None Seen HPF (None Seen); Bilirubin Negative (Negative); Blood, Urine Negative (Negative); Clarity Clear (Clear); Glucose, Urine (Dipstick) Normal (Negative); Leukocyte Negative Leu/uL (Negative); Nitrite Negative (Negative); Protein, Urine (Dipstick) Negative (Neg-Trace); RBC/HPF 0-3 HPF (0-3); Squamous Epithelial None Seen HPF (0-3); Urobilinogen Normal mg/dL (Less than 2); WBC/HPF 0-3 HPF (0-3)
[2019-08-16 23:24] LABS: Amphetamine Not Detected (NotDetected); Barbiturates Screen Not Detected (NotDetected); Benzodiazepine Screen Detected (NotDetected); Cocaine Metabolite Screen Not Detected (NotDetected); Medtox Control Line Valid? VALID (VALID); Medtox Reader # READER 4; Methadone Not Detected (NotDetected); Methamphetamine Not Detected (NotDetected); Opiate Screen Not Detected (NotDetected); Oxycodone Screen Not Detected (NotDetected); Phencyclidine (PCP) Not Detected (NotDetected); THC/Cannabinoid Screen Not Detected (NotDetected); Tricyclic Screen Not Detected (NotDetected)
--- NOTE | 2019-08-17 01:02 | HP ---
PRIMARY CARE PHYSICIAN: Joseph Piper MD CHIEF COMPLAINT: Intractable nausea, vomiting. HISTORY OF PRESENT ILLNESS: Mr. Piper is a 78-year-old man, who reports to the emergency room today after one month of intractable persistent nausea and vomiting. Reports decreased appetite. Reports history of hiatal hernia. Reports that he has not been able to keep anything down except water. He denies fever. Denies current abdominal pain. Denies dysuria. Denies dizziness or chest pain. Reports that he has had an upper and lower GI by Dr. Benjamin in the recent past. reports that he had some sort of stricture in his colon and a history of hiatal hernia. Reports that he has been to the emergency room several times, has been seen by Dr. Benjamin, but has persistent symptoms, so returned to the emergency room today. He denies any constipation or diarrhea. Workup in the emergency room remarkable with a sodium of 134, chloride 93, glucose 113, bilirubin 1.4. Lactic acid 1.7. Urine, largely unremarkable. Toxicology positive for benzodiazepines. Acute abdominal x-ray shows no acute findings. The patient admitted to the observation unit for further management and GI consult. REVIEW OF SYSTEMS: Reports persistent nausea, vomiting. Reports p.o. intolerance. Reports intermittent hypertension and epigastric pain. He denies any current abdominal pain. Denies any constipation, diarrhea, fever, chills, chest pain, shortness of breath, or dizziness. All systems reviewed and are negative unless mentioned in the HPI or above. PAST MEDICAL HISTORY: Hyperlipidemia, hypertension, but he is not currently on any medication. Reports that Dr. Piper took him off that about 6 months ago. PAST SURGICAL HISTORY: Has had some skin cancer removed. PSYCHIATRIC HISTORY: None. SOCIAL HISTORY: Denies any alcohol, drug use, or smoking history. KNOWN ALLERGIES: None. HOME MEDICATIONS: 1. Atorvastatin 10 mg p.o. once a day. 2. Aspirin 81 mg p.o. once a day. PHYSICAL EXAMINATION: VITAL SIGNS: Blood pressure 130/78, pulse is 71, respirations 16, PO2 sats are 96%, temp 98.3. CONSTITUTIONAL: The patient appears ill. He is nontoxic appearing. He is alert and oriented to person, place and time. HEENT: Head is atraumatic and normocephalic. Eyes; eyelids are normal to inspection. Pupils are equal, round, and reactive to light. ENT; mouth exam is normal. Mucous membranes are moist. NECK: Normal range of motion. Trachea is midline. RESPIRATORY/CHEST: Breath sounds are clear. No findings of any respiratory distress. CARDIOVASCULAR: Heart sounds are normal. Regular rate and rhythm. ABDOMEN: Mild tenderness to epigastric region. Bowel sounds are heard. BACK: Range of motion is normal. EXTREMITIES: Upper extremity, normal range of motion. Motor strength is normal. Sensation intact. Radial pulses are normal. Lower extremity, normal range of motion. Motor strength is normal. Pedal pulses are normal. There is no edema noted. NEURO: The patient is oriented to person, place, and time. Speech is normal. SKIN: Warm, dry, and normal in color. PSYCH: Has a normal affect. PLAN/ASSESSMENT: 1. Intractable nausea, vomiting, p.o. intolerance, persistent upper gastric pain. We have consulted Dr. Benjamin. He has requested CT of the brain, abdomen, pelvis, and chest. We will hydrate with normal saline at 125 mL per hour. Given some Reglan 10 mg IV push q.8, Protonix q.12, ondansetron 4 mg IV push q.6 as needed. Repeat lab work in the a.m. 2. Keep clear liquid diet for now. 3. History of hypertension, but has been off medication. We will add some clonidine 0.1 q.4 hours as needed for systolic over 180. 4. History of hyperlipidemia. We will restart home medications. 5. Deep venous thrombosis and gastrointestinal prophylaxis have been started. 6. Hospital course is dependent on clinical findings. Job ID: [id number]
--- NOTE | 2019-08-17 02:46 | CON ---
DATE OF CONSULTATION: 08/16/2019 CHIEF COMPLAINT: Nausea and vomiting. HISTORY OF PRESENT ILLNESS: Mr. Piper is a 78-year-old man who has had chronic nausea and vomiting for a couple of months now. He can tolerate some water, but anything thicker than that makes him nauseated and he vomits. He has been vomiting a few times per day. He was admitted to the hospital back in May 2018 with pneumonia at that time. He also had some ischemic hepatopathy that resolved. I performed EGD and colonoscopy on 08/05/2019 for evaluation of his current symptoms with the nausea and vomiting. The upper endoscopy showed mild reflux esophagitis. A small 1 cm hiatal hernia was present. The upper endoscopy was otherwise negative. Biopsies from the esophagus were negative for Coley's esophagus. Colonoscopy revealed a diverticular segment in the left colon. This had a stricture associated with it and the colonic scope could not be passed through the stricture. A diagnostic upper endoscope, however, could be passed through the stricture and there was no mass lesion or acute inflammatory changes in the left colon. However, because of the shorter smaller endoscope was used, the right side of the colon could not be reached and fully evaluated. A couple of small tubular adenomas were removed from the transverse colon. Repeat colonoscopy with a pediatric colonoscope was recommended, but it has not yet been performed. Patient has been back to the emergency room a couple of times even since the endoscopy back on 08/05. He had been in the ER around 3 times prior to that as well for evaluation of the nausea and vomiting. He states that he had a similar episode of chronic nausea and vomiting around 11 years ago. Symptoms went on for a prolonged period, but then ultimately resolved on their own and he is unsure why. He is not on new medications. He denies marijuana use, however, for the last week, he states that hot showers and hot baths temporarily relieve his nausea. He does seem to get more nausea when his blood pressure increases. Patient has had constipation lately. His last bowel movement was a couple of weeks ago. He states that he did take half a dose of MiraLAX today. PAST MEDICAL HISTORY: Melanoma, status post excision; hypertension; hyperlipidemia; and pneumonia. PAST SURGICAL HISTORY: EGD, colonoscopy, skin cancer excision including melanoma. FAMILY HISTORY: Negative for GI malignancy. SOCIAL HISTORY: No drugs, no smoking. He was drinking a glass of wine in the evenings, has been advised to discontinue that. MEDICATIONS: As an outpatient include; 1. Amlodipine. 2. Atorvastatin. 3. Metoclopramide. 4. Omeprazole. 5. Ondansetron. REVIEW OF SYSTEMS: Negative x10 systems reviewed, except as stated in the history of present illness. PHYSICAL EXAMINATION: VITAL SIGNS: Temperature 98.3, pulse 65, and blood pressure 136/66. GENERAL: He is in no acute distress. Alert and oriented x3. HEENT: Eyes have no scleral icterus. Oropharynx is clear without lesions. No cervical or supraclavicular lymphadenopathy. LUNGS: Clear to auscultation bilaterally. HEART: Regular rate and rhythm without murmur. ABDOMEN: Soft, nontender, and nondistended. Bowel sounds are present. EXTREMITIES: No lower extremity edema. LABORATORY DATA: White blood cell count 8.7, hemoglobin 15.1, and platelets 257. 24-hour urine catecholamines were normal. Creatinine 1.27, little bit up from his baseline of 1.01. Bilirubin 1.4, AST 15, ALT 14, alk phos 48, albumin 4.3, and lipase 26. IMPRESSION: 1. Chronic recurrent nausea and vomiting. States he has been unable to even keep liquids down and has been admitted for rehydration. Upper and lower endoscopies were negative for an obvious source for his nausea and vomiting. He was noted to have a sigmoid stricture around an area of diverticulosis and this resulted in an incomplete colonoscopy. However, there is no tumor in this area. CT scan from back on July 23 was negative for acute inflammatory changes in the bowel. However, followup CT might be helpful, particularly around the diverticular segment. There was no obstruction in this area considering that the acute abdominal series did not show bowel dilation today. We will want to rule out a central process with a CT scan of the brain. The nausea centers in the brain. He does have a history of prior melanoma. We will also want to rule out cannabis-induced hyperemesis syndrome in light of the fact that hot showers and baths seem to temporarily improve his nausea. Other medication side effects, even the calcium channel lan can be considered as a cause for nausea. He has noted previously that his nausea might worsen when his blood pressure goes up. However, his blood pressure is normal now and he has had no headaches. 2. Constipation. RECOMMENDATIONS: 1. CT scan of the brain. 2. Repeat CT scan of the abdomen and pelvis. In light of multiple abnormalities on the previous CT of the chest during the time of pneumonia, followup CT of the chest could be considered at the time of CT of the brain and abdomen and pelvis. 3. MiraLAX daily. 4. Urine tox screen to evaluate for cannabinoids. The patient denies use. 5. Consider cycling off his amlodipine and atorvastatin is the next step if imaging is negative. Job ID: [id number]
[2019-08-17] MEDS: Sodium Chloride 0.9% 1,000 ML IV SCH ×2 (04:39→15:45)
[2019-08-17 05:11] LABS: #Basophils 0.1 thou/uL (0.0-0.2); #Eosinphils 0.2 thou/uL (0.0-0.7); #Lymphocytes 1.7 thou/uL (1.20-3.40); #Monocytes 0.7 thou/uL (0.11-0.59); #Neutrophils 8.5 thou/uL (1.40-6.50); %Basophils 0.5 % (0.0-1.0); %Eosinophils 1.7 % (0.0-10.0); %Lymphocytes 15.5 % (21.0-51.0); %Monocytes 6.4 % (0.0-10.0); %Neutrophils 75.9 % (42.0-75.0); Hemoglobin 13.9 g/dL (14.0-18.0); Mean Corpuscular HGB CONC 33.2 g/dL (32.0-36.0); Mean Corpuscular Hemoglobin 30.9 pg (27.0-31.0); Mean Corpuscular Volume 93.1 fL (78.0-98.0); Mean Platelet Volume 8.1 fL (7.4-10.4); Platelet Count 241 thou/uL (130-400); RBC Distribution Width 11.8 % (11.5-14.5); Red Blood Cell (RBC) Count 4.51 mill/uL (4.70-6.10); White Blood Cell (WBC) Count 11.2 thou/uL (4.8-10.8)
[2019-08-17 05:29] LABS: ALT (SGPT) 11 U/L (8-55); AST (SGOT) 13 U/L (5-34); Albumin 3.8 g/dL (3.4-4.8); Alkaline Phosphatase 44 U/L (40-110); Anion Gap 12 mmol/L (10-20); BUN (Urea Nitrogen) 16 mg/dL (8.4-25.7); Bilirubin, Total 1.1 mg/dL (0.2-1.2); Calc. Creatinine Clearance 59 mL/min (70-130); Calcium 8.9 mg/dL (7.8-10.44); Carbon Dioxide 26 mmol/L (23-31); Chloride 99 mmol/L (98-107); Estimated GFR-MDRD 73; Globulin 2.4 g/dL (2.4-3.5); Glucose 103 mg/dL (83-110); Potassium 3.3 mmol/L (3.5-5.1); Protein, Total 6.2 g/dL (5.8-8.1); Sodium 134 mmol/L (136-145)
[2019-08-17] MEDS: Metoclopramide HCl 10 MG/2 ML VIAL IVP SCH ×2 (06:06→15:47)
[2019-08-17] MEDS: Pantoprazole 40 MG VIAL IVP SCH ×2 (08:06→20:22)
--- NOTE | 2019-08-17 09:14 | CT ---
EXAM: CT brain without and with contrast HISTORY: Dizziness with nausea and vomiting for one month COMPARISON: None TECHNIQUE: Multiple contiguous axial images were obtained and a CT of the brain without and with cont rast. FINDINGS: The brain is normal in morphology and attenuation without focal lesions or confluent areas of infarction. There is no evidence of hydrocephalus, intracranial hemorrhage, or extra-axial fluid collection. No abnormal enhancement is seen. The calvarium and overlying soft tissues are unremarkable. The visualized paranasal sinuses and masto id air cells are well aerated. IMPRESSION: No evidence of acute intracranial abnormality
--- NOTE | 2019-08-17 09:44 | CT ---
CT OF THE CHEST, ABDOMEN AND PELVIS WITH IV CONTRAST INDICATION: History of lung lesions COMPARISON: CT the chest, abdomen and pelvis dated June 01, 2018 FINDINGS: CHEST: Lungs: The extensive airspace opacity and consolidation involving the left lung on the prior examinat ion has resolved. There is a 9 mm triangular pulmonary nodule on image 24 of series 3 within the left upper lobe. There is an additional groundglass nodular opacity within the superior lingula on im age 35 of series 3 measuring 1.6 cm. There are areas of tree-in-bud nodularity seen near the superior lingula on image 35 of series 3. There are areas of a small tree-in-bud nodularity involving the superior segment of the left lower lobe. Pleural space: No effusion. Mediastinum: No pathologically enlarged lymph nodes are evident. There are scattered coronary artery and thoracic aortic calcifications. Axilla: No pathologically enlarged lymph nodes. ABDOMEN: Liver: No focal lesion. Gallbladder: Normal appearing. Pancreas: Normal. Adrenal glands: Normal. Spleen: Normal. Kidneys and ureters: There is a stable left renal cyst measuring 3 cm. Right kidney is normal-appeari ng. Vasculature: There are moderate vascular calcifications seen involving the visualized vasculature. Lymph nodes:No lymphadenopathy. Free fluid in abdomen:No free fluid is evident. PELVIS: Small and large bowel: Scattered colonic diverticula without evidence of active diverticulosis. There are bilateral inguinal hernias containing unobstructed loops of small bowel. Appendix:Normal Bladder: There is mild wall thickening involving the bladder which is nonspecific. The bladder is par tially under distended. The prostate is enlarged measuring 4.9 cm per Rectal and perirectal soft tissues:Normal. Reproductive structures: Prostate enlargement as above Free fluid in pelvis: No free fluid is evident. Lymphadenopathy pelvis: No lymphadenopathy is evident. Osseous structures: There is moderate thoracolumbar scoliosis. There is diffuse osteopenia. There is scattered degenerative and osteoarthritic changes. Soft tissues:Normal. IMPRESSION: 1. Small areas of residual groundglass nodular opacity within the left upper lobe and lingula with sc attered areas of tree-in-bud nodularity is suspicious for a residual infectious or inflammatory pneumonitis. A short-term follow-up in 6-8 weeks is recommended to document resolution. 2. Mild bladder wall thickening. Some of this may be related to underdistention; however, component c ystitis is not excluded. The prostate is mildly enlarged. A component of chronic bladder outlet obstruction is not excluded. 3. Bilateral inguinal hernias containing unobstructed loops of bowel. 4. Stable left renal cyst
[2019-08-17] MEDS ORDERED: Sodium Chloride 0.65% Nasal 44 ML BOT EA NARE PRN (10:50)
[2019-08-17] MEDS ORDERED: Potassium Chloride 10 MEQ in Premix Bag 1 BAG IVPB SCH (14:00)
[2019-08-17 15:18] VITALS: BMI 20.7
[2019-08-17] MEDS: D5W-AA 4.25% with LYTES 1,000 ML IV SCH (17:23)
--- NOTE | 2019-08-17 18:49 | PDOC.HOSPP ---
- Subjective Encounter Date: 08/17/19 Encounter Time: 13:40 Subjective: Pt seen for followup re: nausea and vomiting. Feels better. - Objective Vital Signs & Weight: Vital Signs (12 hours) Temp Pulse Resp BP Pulse Ox 08/17/19 15:15 97.7 F 88 16 129/72 96 08/17/19 11:00 97.7 F 61 16 155/72 H 96 08/17/19 07:00 97.7 F 65 16 158/74 H 95 Weight Admit Weight 147 lb Weight 147 lb I&O: 08/16/19 08/17/19 08/18/19 06:59 06:59 06:59 Intake Total 2000 10 Output Total 800 750 Balance 1200 -740 Result Diagrams: 08/17/19 04:59 08/17/19 05:00 Additional Labs: Labs and MARs reviewed by [facility] Hospitalist ROS - Review of Systems Cardiovascular: denies: chest pain, palpitations, orthopnea, paroxysmal noc. dyspnea, edema, light headedness Gastrointestinal: reports: nausea, vomiting. denies: abdominal pain, diarrhea, constipation, melena, hematochezia - Medication Medications: Active Medications Generic Name Dose Route Start Last Admin Trade Name Freq PRN Reason Stop Dose Admin Sodium Chloride 1,000 mls @ 125 mls/hr 08/16/19 19:45 08/17/19 15:45 Normal Saline 0.9% IV 1,000 mls .Q8H COBY Administration Amino Acids/Electrolytes/Dextrose 1,000 mls @ 100 mls/hr 08/17/19 16:00 08/17 17:23 Clinimix E 4.25/5 IV 1,000 mls .Q10H COBY Administration Metoclopramide HCl 10 mg 08/16/19 22:00 08/17/19 15:47 Reglan IVP 10 mg Q8HR COBY Administration Pantoprazole Sodium 40 mg 08/16/19 21:00 08/17/19 08:06 Protonix IVP 40 mg Q12HR COBY Administration Sodium Chloride 0 ml 08/17/19 10:50 08/17/19 11:04 [place] Nasal [place] 0.65% EA NARE 1 spray PRN PRN Administration Nasal Congestion - Exam General Appearance: NAD Eye: anicteric sclera ENT: normocephalic atraumatic Neck: supple Heart: RRR Respiratory: CTAB Gastrointestinal: soft, non-tender Extremities: no cyanosis Skin: normal turgor Musculoskeletal: normal strength Psychiatric: normal affect Hosp A/P (1) Nausea and vomiting Code(s): R11.2 - NAUSEA WITH VOMITING, UNSPECIFIED Status: Acute (2) Hypokalemia Code(s): E87.6 - HYPOKALEMIA Status: Acute (3) Hyponatremia Code(s): E87.1 - HYPO-OSMOLALITY AND HYPONATREMIA Status: Acute (4) Dyslipidemia Code(s): E78.5 - HYPERLIPIDEMIA, UNSPECIFIED Status: Chronic (5) HTN (hypertension) Code(s): I10 - ESSENTIAL (PRIMARY) HYPERTENSION Status: Chronic Qualifiers: Hypertension type: essential hypertension Qualified Code(s): I10 - Essential (primary) hypertension (6) Moderate protein-calorie malnutrition Code(s): E44.0 - MODERATE PROTEIN-CALORIE MALNUTRITION Status: Chronic - Plan plan discussed w/ family All imaging negative so far. Start PPN. GI following. Replace potassium. Hyponatremia mild, likely asymptomatic.
[2019-08-17] MEDS ORDERED: Amlodipine 5 MG TAB PO SCH (19:45)
[2019-08-17] MEDS: Fluticasone Propionate Nasal Spray 16 gm Bottle NASAL SCH (20:22)
--- NOTE | 2019-08-17 22:48 | PRG ---
DATE OF SERVICE: 08/17/2019 SUBJECTIVE: Mr. Piper has no appetite and has concern of anticipating nausea with any oral intake. While he tolerated the CT contrast well, he has not attempted to take anything else by mouth today. He has no significant abdominal pain with this. He has had episodes of hypertension and feels like these correlate with his nausea at home. Here in the hospital, his blood pressure has been running in the 150s to 170s systolic. OBJECTIVE: VITAL SIGNS: Temperature is 98.7, pulse 69, blood pressure 171/79. GENERAL: He is in no acute distress. Alert and oriented x3. LUNGS: Clear to auscultation bilaterally. HEART: Regular rate and rhythm without murmur. ABDOMEN: Soft, nontender, nondistended. Bowel sounds are present. EXTREMITIES: No lower extremity edema. LABORATORY DATA: White blood cell count 11.2, hemoglobin 13.9, platelets 241, creatinine 1.0. LFTs were normal. IMAGING: He had CT scan of the brain today which was negative for lesion to explain the nausea and vomiting. He had CT scan of the chest, abdomen and pelvis today. The abdomen and pelvis CT showed some bladder wall thickening, but otherwise did not show any acute reason for his nausea and vomiting. Inguinal hernias were noted with unobstructed bowel loops. CT of the chest showed some ground-glass and inflammatory versus infectious changes. IMPRESSION: Chronic recurrent nausea and vomiting. The cause of these have not been determined. Upper and lower endoscopies have been negative. CT scan does not show an obvious source. He does report some episodes of hypertension that have been possibly associated with the nausea. He has followup and further workup with Dr. Bender scheduled for later this week including echocardiogram and a stress test. RECOMMENDATIONS: 1. Plan gastric emptying scan tomorrow morning. 2. Continue proton pump inhibitor. Job ID: [id number]
[2019-08-18] MEDS: D5W-AA 4.25% with LYTES 1,000 ML IV SCH ×3 (03:20→13:25)
[2019-08-18] MEDS ORDERED: Amlodipine 5 MG TAB PO SCH (09:00)
[2019-08-18] MEDS: Sodium Chloride 0.9% 1,000 ML IV SCH (12:43)
[2019-08-18] MEDS: Pantoprazole 40 MG VIAL IVP SCH (12:52)
[2019-08-18] MEDS: Fluticasone Propionate Nasal Spray 16 gm Bottle NASAL SCH (12:53)
--- NOTE | 2019-08-18 15:27 | PRG ---
DATE OF SERVICE: 08/18/2019 SUBJECTIVE: Mr. Piper still is avoiding any oral intake due to concern about possible nausea. He tolerated the CT contrast just fine. He underwent a gastric emptying scan this morning and ate eggs and kept those down without any problems. OBJECTIVE: VITAL SIGNS: He reports that his blood pressure spiked up as high as 180s systolic last night. He does report that he gets sweats with these episodes. Current vital signs temperature is 98.3, pulse 74, blood pressure 146/69. GENERAL: He is in no acute distress. Alert and oriented x3. LUNGS: Clear to auscultation bilaterally. HEART: Regular rate and rhythm without murmur. ABDOMEN: Soft, nontender, nondistended. Bowel sounds present. EXTREMITIES: No lower extremity edema. LABORATORY DATA: White blood cell count 11.2, hemoglobin 13.9, those from yesterday. IMPRESSION: 1. Chronic nausea and vomiting for the last month. He seems to have more of a food aversion at this point rather than ongoing vomiting. His gastric emptying scan was normal. He kept the CT contrast down. He reports that these nausea episodes seem to fluctuate to some degree with his blood pressure. He had 24-hour urine catecholamines checked, which were normal back on 08/09/2019. Upper and lower endoscopy were negative. Brain CT was negative. A CT of the chest, abdomen, and pelvis also failed to show obvious source for nausea. He did have a narrowing in the sigmoid colon associated with a diverticular stricture, but no obvious bowel distention proximal to that. RECOMMENDATIONS: 1. Advance back to oral nutrition and we can start with full liquids and advance as he tolerates. 2. He can likely discharge home this afternoon if he can keep some oral nutrition down. 3. Check 24-hour urine 5-HIAA. 4. It is noted that his urine benzodiazepines are positive. He denies any depression, but has had some anxiety. States he had normal mental state prior to the onset of this nausea and vomiting a month ago. He does have a workup of his high blood pressure with Dr. Bender as scheduled. He has an echocardiogram and a stress test scheduled over the next couple of days as an outpatient. Job ID: [id number]
[2019-08-18 16:08] VITALS: BP 165/78; TEMP 98.9
--- NOTE | 2019-08-18 16:08 | NM ---
NUCLEAR MEDICINE GASTRIC EMPTYING STUDY: 08/18/19 HISTORY: Unable to eat x1 month. Gastroparesis, vomiting, and nausea. Examination was performed using 2 millicuries of 99m technetium sulfur colloid mixed orally with eggs . At 30 minutes there is 43% emptying. At 1 hour there is 63% emptying. At 3 hours there is 71% emptying. 84% emptying by 3 hours and 98% emptying at 4 hours. IMPRESSION: Unremarkable gastric emptying study. POS: DONG
--- NOTE | 2019-08-19 01:26 | DIS ---
DATE OF ADMISSION: 08/16/2019 DATE OF DISCHARGE: 08/18/2019 PRIMARY CARE PROVIDER: Joseph Piper MD DISCHARGE DIAGNOSES: 1. Nausea and vomiting. 2. Food aversion, suspected. 3. Hyponatremia. 4. Hypokalemia. CONDITION OF PATIENT ON THE DAY OF DISCHARGE: Stable. I assessed Mr. Piper on the day of discharge. He reports tolerating some liquid diet. Vital signs are stable. S1 and S2 are heard, regular. Lungs are clear to auscultation bilaterally. CONSULTATIONS DURING THIS HOSPITALIZATION: Gastroenterology, Paul Benjamin MD HOSPITAL COURSE: Mr. Piper is a pleasant 78-year-old gentleman, who was admitted to [facility] on August 16, 2019, for intractable nausea and vomiting. He was seen by Gastroenterology Service. CT scan of the chest, abdomen and pelvis showed small areas of residual ground-glass/nodular opacity within the left upper lobe and lingula with scattered areas of tree-in-bud nodularity suspicious for residual infectious or inflammatory pneumonitis. He also had mild bladder wall thickening. He had bilateral inguinal hernias containing non-obstructed loops of bowel and he also had stable left renal cyst. On August 18, he underwent gastric emptying scan, which was unremarkable. He also had run of 12-beat paroxysmal atrial tachycardia. I have advised him to mention that to his senior wind energy consultant at his appointment in the next couple of days. He has been cleared for discharge home. He has been advised to have oral fluids. He has also been advised to have 5-HIAA levels in 24 hours urine. POST-ACUTE CARE FOLLOWUP: With cardiology, Dr. Bender; with Gastroenterology, Dr. Benjamin; and with primary care provider. DISCHARGE MEDICATIONS: No change was made to his pre-admission home medications, which include: 1. Amlodipine 2.5 mg daily. 2. Atorvastatin 10 mg at bedtime. 3. Metoclopramide 10 mg every 8 hours as needed. 4. Omeprazole 20 mg daily. 5. Zofran p.r.n. 6. Flonase. DISCHARGE DESTINATION: Home. ACTIVITY: As tolerated. DIET: Heart healthy diet. Job ID: [id number]
== END 2019-08-18 17:56 | disposition home or self-care (01) ==
LOC: ERS 15:02 → 2SW 19:20
PROVIDERS: ADMIT Family Medicine; ATTEND Family Medicine
DX: R11.2 Nausea with vomiting, unspecified (principal); E87.1 Hypo-osmolality and hyponatremia; E87.6 Hypokalemia; I10 Essential (primary) hypertension; E78.5 Hyperlipidemia, unspecified; M41.9 Scoliosis, unspecified; K44.9 Diaphragmatic hernia without obstruction or gangrene; K57.30 Diverticulosis of large intestine without perforation or abscess without bleeding; Q61.01 Congenital single renal cyst; K40.20 Bilateral inguinal hernia, without obstruction or gangrene, not specified as recurrent; I47.1 Supraventricular tachycardia; E44.0 Moderate protein-calorie malnutrition; Z68.20 Body mass index [BMI] 20.0-20.9, adult; Z79.82 Long term (current) use of aspirin; Z79.899 Other long term (current) drug therapy
CPT/HCPCS: 70470; 71260; 74022; 74177; 78264; 80053 ×2; 80306; 81001; 83605; 83690; 85025 ×2; 93005; 96361 ×3; 96366 ×2; 96367; 96375 ×2; 96376 ×2; 99285; A9541; G0378 ×4; 36415; 96374; C9113; J2405; J2765; J3480